=== PATIENT | female | born 1950 | race Caucasian/White ===

== ENCOUNTER → 2017-09-09 | Day surgery (SDC) | payer MEDICARE, OTHER ==
[~2017-09-09] MED LIST: CALCIUM ACETAT667 M1 PO; CELEBREX100 MG PO; HYALURONIDASE 16 MG/2 ML SYR ONE; HYDROCODON-ACE1 EA12 PO; IOPAMIDOL 200 MG/ML 20 ML VIAL IT ONE; LIDOCAINE HCL 1% 30ML-PF VIAL ONE; LIDOCAINE HCL 2% LOCAL INJ 5 ML SDV VIAL INJ ONE; METHOCARBAMOL750 MG PO; MULTI-VITAMIN1 EACH PO; PROPOFOL IV EMULSION 10 MG/ML 20 ML VIAL ONE; TYLENOL EXTRA500 MG PO; ULTRAM 50MG50 MG PO; VITAMIN D5000 UNIT PO; XANAX0.5 MG PO; tylenol pm PO
== END | disposition home or self-care (01) ==
LOC: OR 06:10
PROVIDERS: ATTEND Physical Medicine & Rehabilitation Pain Medicine
DX: M17.12 Unilateral primary osteoarthritis, left knee (principal); Z96.651 Presence of right artificial knee joint; M46.1 Sacroiliitis, not elsewhere classified; G57.02 Lesion of sciatic nerve, left lower limb; G57.01 Lesion of sciatic nerve, right lower limb; M47.812 Spondylosis without myelopathy or radiculopathy, cervical region; M54.16 Radiculopathy, lumbar region; I10 Essential (primary) hypertension; J45.909 Unspecified asthma, uncomplicated
CPT/HCPCS: 20610; 76000; J2001 ×2; Q9966

== ENCOUNTER → 2018-07-14 | Day surgery (SDC) | payer MEDICARE, OTHER ==
[2018-07-13 10:10] LABS: BASOPHILS % 0.6 % (0.0-1.0); EOSINOPHILS # (AUTO) 0.1 (0.0-0.4); EOSINOPHILS % 1.4 % (0.0-6.0); HEMATOCRIT 38.3 % (34.2-44.1); HEMOGLOBIN 11.6 g/dL (12.0-16.0); LYMPHOCYTES # (AUTO) 1.8 (1.0-3.2); LYMPHOCYTES % 35.3 % (18.0-39.1); MEAN CORPUSCULAR HEMOGLOBIN 25.3 pg (28-32); MEAN CORPUSCULAR HGB CONC 30.3 g/dL (31-35); MEAN CORPUSCULAR VOLUME 83.6 fL (81-99); MONOCYTES # (AUTO) 0.6 (0.2-0.8); MONOCYTES % 10.9 % (4.4-11.3); NEUTROPHILS # (AUTO) 2.7 (2.1-6.9); NEUTROPHILS % 51.4 % (38.7-80.0); PLATELET COUNT 167 x10e3/uL (140-360); RED BLOOD COUNT 4.58 x10e6/uL (3.6-5.1); RED CELL DISTRIBUTION WIDTH 14.1 % (11.7-14.4)
[~2018-07-14] MED LIST changes: +FENTANYL CITRATE/PF 100MCG/2 ML INJ ONE; +HYALURONIDASE 16 MG/2 ML SYR IU ONE; -HYALURONIDASE 16 MG/2 ML SYR ONE; +METAXALONE800 MG PO; +MIDAZOLAM HCL 2 MG/2 ML VIAL ONE; +NASONEX17 GM; +VIT B12 INJ
--- OUTSIDE RECORDS SUMMARY | 2018-07-14 05:09 | XMS REPORT | Continuity of Care Document ---
Author Author [facility] Interface Address Unknown Phone Unavailable Problems Problem Status Onset Date Classification Date Reported Comments Source Encounter for screening mammogram for malignant neoplasm of breast 12/22/2017 03/23/2018 KEANU Hamm Z12.39 - ENCOUNTER FOR OTH SCREENING FO Active 07/04/2015 KEANU Hamm MORBID OBESITY Active 06/06/2013 [facility] Asthma Resolved Problem 04/07/2018 KEANU Hamm,[facility], [facility] [place] Depression Resolved Problem 04/07/2018 KEANU Hamm,[facility], [facility] [place] HLD - Hyperlipidemia Resolved Problem 04/07/2018 KEANU Hamm,[facility], [facility] [place] HTN - Hypertension Resolved Problem 04/07/2018 KEANU Hamm,[facility], [facility] [place] Morbid obesity Resolved Problem 04/07/2018 KEANU Hamm,[facility], [facility] [place] Osteoarthritis Resolved Problem 04/07/2018 KEANU Hamm,[facility], [facility] [place] Reflux Resolved Problem 04/07/2018 KEANU Hamm,[facility], [facility] [place] Encounter for screening for osteoporosis 03/23/2018 [place] Unspecified menopausal and perimenopausal disorder 03/23/2018 [facility] [place] MORBID OBESITY Active [facility] Medications Medication Details Route Status Patient Instructions Ordering Provider Order Date Source acetaminophen-hydrocodone 325 mg-7.5 mg/15 mL oral solution 15 ml, PO, Q4H, PRN, not to exceed 6 doses/day, 500 mL, as needed for pain, Substitution Allowed, Maintenance, SOLNnot to exceed 6 doses/day Active Sagun 07/26/2013 [facility] potassium phosphate + Sodium Chloride 0.9% IV 250 mL 30 mmol, 10 mL, Route: IVPB, ONCE, Dosing Weight 127.273, kg, Start date: 07/26/13 7:42:00, Stop date: 07/26/13 7:42:00(Same as: K Phosphate.) 1 mMol phoshate has 1.47 mEq potassium Infuse over 4 hours Inactive Brodie 07/26/2013 [facility] LR IV 1,000 mL 1,000 mL, Rate: 75 ml/hr, Infuse over: 13.3 hr, Route: IV, Dosing Weight 127.273 kg, Total Volume: 1,000, Start date: 07/25/13 13:42:00, Duration: 30 day, Stop date: 08/24/13 13:41:00 No Longer Active Dolphin 07/25/2013 [facility] acetaminophen-hydrocodone 300 mg-10 mg/15 mL oral liquid 15 mL, Route: PO, Drug Form: SOLN, Dosing Weight 127.273, kg, Q4H, PRN Pain, Start date: 07/25/13 13:42:00, Duration: 30 day, Stop date: 08/24/13 13:41:00Do not exceed 4gm/day of acetaminophen. (Same as: Zolvit) No Longer Active [place] 07/25/2013 [facility] Dextrose 5% with 0.45% NaCl IV 1,000 mL 1,000 mL, Rate: 75 ml/hr, Infuse over: 13.3 hr, Route: IV, Dosing Weight 127.273 kg, Total Volume: 1,000, Start date: 07/25/13 13:04:00, Duration: 30 day, Stop date: 08/24/13 13:03:00 Inactive [place]olphin 07/25/2013 [facility] ketorolac 30 mg, 1 mL, Route: IV, Drug form: INJ, Q6H, Dosing Weight 127.273, kg, Priority: STAT, Start date: 07/25/13 10:15:00, Duration: 1 day, Stop date: 07/26/13 10:00:00(Same as:Toradol) IV bolus must be given >15 seconds. Give IM administration slowly and deeply into the muscle. Not for use > 4 days No Longer Active Dolphin 07/25/2013 [facility] Bystolic 5 mg, 1 tab, Route: PO, Drug form: TAB, Daily, Start date: 07/25/13 9:00:00, Duration: 30 day, Stop date: 08/23/13 9:00:00(same as: Bystolic) No Longer Active [facility] 07/25/2013 [facility] Celexa 40 mg, 2 tab, Route: PO, Drug form: TAB, Daily, Start date: 07/25/13 9:00:00, Duration: 30 day, Stop date: 08/23/13 9:00:00(Same As: Celexa) No Longer Active [facility] 07/25/2013 [facility] heparin 5,000 unit, 1 mL, Route: SUB-Q, Drug form: INJ, Q8H, Start date: 07/25/13 8:00:00, Duration: 30 day, Stop date: 08/24/13 0:00:00porcine heparin No Longer Active [facility] 07/25/2013 [facility] Levaquin 750 mg, 150 mL, Route: IV, Drug form: SOLN, ONCE, Dosing Weight 127.273, kg, Start date: 07/25/13 7:04:00, Stop date: 07/25/13 7:04:00(Same as:Levaquin) Inactive Chivo 07/25/2013 [facility] D5W 1/2NS + KCL 20mEq/L 1000ml (Premix) 1,000 mL 1,000 mL, Rate: 75 ml/hr, Infuse over: 13.3 hr, Route: IV, Dosing Weight 127.273 kg, Total Volume: 1,000, Start date: 07/25/13 6:42:00, Duration: 30 day, Stop date: 08/24/13 6:41:00PREMIX IV - Do Not Alter Inactive Chivo 07/25/2013 [facility] albuterol 0.083% inhalation solution 2.49 mg, 3 mL, Route: NEB, Drug form: SOLN, RQ6H, Start date: 07/25/13 2:00:00, Duration: 30 day, Stop date: 08/23/13 20:00:00SEE RT DOCUMENTATION (Same as: Heriberto) No Longer Active [facility] 07/25/2013 [facility] naloxone 0.4 mg, 1 mL, Route: IV, Drug form: INJ, PRN, PRN Narcotic Reversal, Start date: 07/25/13 0:34:00, Duration: 30 day, Stop date: 08/23/13 23:33:00(Same as: Narcan) No Longer Active [facility] 07/25/2013 [facility] hydromorphone 15 mg IV, Start date: 07/25/13 0:34:00, Duration: 30, 30 ml, 127.273 No Longer Active Sagun 07/25/2013 [facility] Zofran 4 mg, 2 mL, Route: IVP, Drug form: INJ, Q6H, PRN Nausea & Vomiting, Start date: 07/25/13 0:30:00, Duration: 30 day, Stop date: 08/24/13 0:29:00(Same as: Zofran) No Longer Active [facility] 07/25/2013 [facility] Phenergan 12.5 mg, 0.5 mL, Route: IVPB, Drug form: INJ, Q4H, PRN Nausea & Vomiting, Start date: 07/25/13 0:28:00, Stop date: 08/24/13 0:27:00Do not give IV push. (Same as: Phenergan) No Longer Active [facility] 07/25/2013 [facility] Benadryl 25 mg, 0.5 mL, Route: IV, Drug form: INJ, Bedtime, PRN Insomnia, Start date: 07/25/13 0:26:00, Duration: 30 day, Stop date: 08/24/13 0:25:00(Same as: Benadryl) No Longer Active [facility] 07/25/2013 [facility] Lactated Ringers Injection IV 1,000 mL 1,000 mL, Rate: 100 ml/hr, Infuse over: 10 hr, Route: IV, Dosing Weight 127.273 kg, Total Volume: 1,000, Start date: 07/25/13 0:23:00, Duration: 30 day, Stop date: 08/24/13 0:22:00 Inactive Chivo 07/25/2013 [facility] promethazine 6.25 mg, Route: IM, ONCE, Dosing Weight 127.273, kg, Start date: 07/24/13 19:21:00, Stop date: 07/24/13 19:21:00 Inactive Rey 07/25/2013 [facility] labetalol 5 mg, Route: IVP, Q5Min, Dosing Weight 127.273, kg, PRN Elevated BP, Start date: 07/24/13 18:02:00, Duration: 5 doses or times, Stop date: Limited # of times Inactive Naylor 07/24/2013 [facility] fentanyl 25 microgram, Route: IVP, Q5Min, Dosing Weight 127.273, kg, PRN Pain Score 4-6, Start date: 07/24/13 18:02:00, Duration: 4 doses or times, Stop date: Limited # of times Inactive Naylor 07/24/2013 [facility] flumazenil 0.2 mg, Route: IVP, PRN, Dosing Weight 127.273, kg, PRN Benzodiazepine Reversal, Initial dose, Start date: 07/24/13 18:02:00, Duration: 30 day, Stop date: 08/23/13 17:01:00 Inactive Naylor 07/24/2013 [facility] naloxone 0.04 mg, Route: IVP, Q2MIN, Dosing Weight 127.273, kg, PRN Narcotic Reversal, Start date: 07/24/13 18:02:00, Duration: 8 doses or times, Stop date: Limited # of times Inactive Naylor 07/24/2013 [facility] ondansetron 4 mg, Route: IVP, ONCE, Dosing Weight 127.273, kg, PRN Nausea & Vomiting, Start date: 07/24/13 18:02:00 Inactive Aric 07/24/2013 [facility] Levaquin 500 mg, Route: IVPB, PRE OP, Dosing Weight 127.273, kg, Start date: 07/24/13 13:59:00 Inactive Wilbur 07/24/2013 [facility] bupivacaine liposome 20 mL, Route: InFILtration(local), Drug Form: INJ, ONCE, Start date: 07/24/13 12:46:00, Stop date: 07/24/13 12:46:00(Same as: Exparel) NOT FOR IV use Postoperative analgesia: Infiltration (local): Dose is based on surgical site and volume required to cover the area (in general, the maximum total dose is 266 mg). Bunionectomy: 7 mL into the tissues surrounding the osteotomy and 1 mL into the subcutaneous tissue of the surgical site (total dose=8 mL [106 mg]) Hemorrhoidectomy: 30 mL (20 mL vial diluted with 10 mL NS) divided and administered as 6 injections of 5 mL each (total dose=30 mL [266 mg]) No Longer Active [place]olphin 07/24/2013 [facility] Ofirmev 1,000 mg, 100 mL, Route: IV, Drug form: INJ, PRE OP, Start date: 07/24/13 6:00:00, Duration: 1 doses or times, Stop date: 07/24/13 22:00:00Infuse over 15 minutes Do not exceed 4gm/day of acetaminophen No Longer Active [place] 07/24/2013 [facility] heparin 5,000 unit, 1 mL, Route: SUB-Q, Drug form: INJ, PRE OP, Start date: 07/24/13 6:00:00, Duration: 1 doses or times, Stop date: 07/24/13 22:00:00porcine heparin Inactive [place] 07/24/2013 [facility] scopolamine 1 patch, Route: TOP, Drug form: ERFILM, PRE OP, Start date: 07/24/13 6:00:00, Duration: 1 doses or times, Stop date: 07/24/13 22:00:00Change patch every 72 hours (Same as: Transderm-Scop) Inactive [place] 07/24/2013 [facility] Ofirmev 1,000 mg, 100 mL, Route: IV, Drug form: INJ, PRE OP, Start date: 07/23/13 4:00:00, Duration: 1 doses or times, Stop date: 07/23/13 22:00:00Infuse over 15 minutes Do not exceed 4gm/day of acetaminophen Inactive [place]olphin 07/23/2013 [facility] scopolamine 1 patch, Route: TOP, Drug form: ERFILM, PRE OP, Start date: 07/23/13 4:00:00, Duration: 1 doses or times, Stop date: 07/23/13 22:00:00Change patch every 72 hours (Same as: Transderm-Scop) Inactive [place] 07/23/2013 [facility] heparin 5,000 unit, 1 mL, Route: SUB-Q, Drug form: INJ, PRE OP, Start date: 07/23/13 4:00:00, Duration: 1 doses or times, Stop date: 07/23/13 22:00:00porcine heparin Inactive Wilbur 07/23/2013 [facility] Vitamin B-12 1000 mcg sublingual tablet Substitution Allowed No Longer Active 07/12/2013 [facility] vitamin A 8000 units oral capsule Substitution Allowed No Longer Active 07/12/2013 [facility] Multiple Vitamins oral tablet 1 tab, PO, Daily, 30 tab, Substitution Allowed, Maintenance, TAB No Longer Active 07/12/2013 [facility] Aleve Caplet 220 mg oral tablet Substitution Allowed No Longer Active 07/12/2013 [facility] Prilosec 10 mg oral delayed release capsule 10 mg, 1 cap, PO, Daily, 30 cap, Substitution Allowed No Longer Active 07/12/2013 [facility] FiberCon 625 mg oral tablet Substitution Allowed No Longer Active 07/12/2013 [facility] Ventolin HFA 90 mcg/inh inhalation aerosol with adapter 2 puff, INHALATION, QID, 17 gm, Substitution Allowed, Maintenance, AERO Active 07/12/2013 [facility] Symbicort 80/4.5 inhalation aerosol with adapter 2 puff, INHALATION, BID, 10 gm, Substitution Allowed, Maintenance, AERO Active 07/12/2013 [facility] Nasonex 50 mcg/inh nasal spray 2 spray, NASAL, Daily, PRN for allergy symptoms, 17 gm, Substitute Allowed, SPRY Active 07/12/2013 [facility] Celebrex 200 mg oral capsule Substitution Allowed No Longer Active 07/12/2013 [facility] Vitamin D 50,000 intl units oral capsule 50,000 IntlUnit, 1 cap, PO, 5X Day, 24 cap, Substitution Allowed, CAP No Longer Active 07/12/2013 [facility] citalopram 40 mg oral tablet 40 mg, 1 tab, PO, Daily, 30 tab, Substitution Allowed, TAB Active 07/12/2013 [facility] Vytorin 10 mg-20 mg oral tablet 1 tab, PO, Daily, 30 tab, Substitution Allowed, Maintenance, TAB Active 07/12/2013 [facility] Bystolic 5 mg oral tablet 5 mg, 1 tab, PO, Daily, 30 tab, Substitution Allowed, TAB Active 07/12/2013 [facility] fosinopril 10 mg oral tablet 10 mg, 1 tab, PO, Daily, 30 tab, Substitution Allowed, TAB Active 07/12/2013 [facility] Allergies, Adverse Reactions, Alerts Substance Category Reaction Severity Reaction type Status Date Reported Comments Source penicillins Assertion Drug allergy Active [facility] [place] Immunizations Immunization Date Given Site Status Last Updated Comments Source Results Order Name Results Value Reference Range Date Interpretation Comments Source Chest 2 views DX Chest 2 views DX EXAM: XR CHEST 2 VIEWS DATE: 04/04/2018 8:47 AM CDT INDICATION: - asthma, pre op COMPARISON: August 08, 2008 TECHNIQUE: PA and lateral chest radiographs FINDINGS: BONES: [No significant osseous abnormalities HEART: [Normal in size and configuration] Mediastinum and Justice: No soft tissue masses in the mediastinum or justice. There are rim-like calcifications in the umaña of the aorta at the arch. The descending thoracic aorta is mildly tortuous. Lungs: There is ill-defined increased density in the right infrahilar region extending to the medial portion of the right hemidiaphragm. The appearance is very similar to that comparison study which was almost 9 years ago. The lungs are otherwise clear. There are no pleural effusions. IMPRESSION: 1. Airspace density in the right lung base medially is present. This appears grossly unchanged from a comparison study from 9 years earlier. This could represent the same density or represent a new area of airspace disease such as atelectasis or pneumonia. Please correlate for any active process. Consider repeat plain exam in 2-3 weeks. If the process is persistent on follow-up radiographs, a CT scan is suggested. 04/04/2018 - - Read by: Jadon Siddiqui MD Dictated Date/time: 04/04/18 09:59 Electronically Signed by: Jadon Siddiqui MD 04/04/18 10:03 FINAL REPORT [facility] Bone Density DXA [employer] MA Bone Density DXA [employer] MA BONE DENSITY ASSESSMENT: 12/15/2017 CLINICAL DATA: Post menopausal. N95.9 Unspecified Menopausal And Perimenopausal Disorder/N95.9 Unspecified Menopausal And Perimenopausal Disorder RISK FACTORS: race. FINDINGS: Bone density evaluation was performed 12/15/2017 on the right femur neck using a Hologic unit. The BMD average for the exam is 0.666 g/cm2. The T-score is -1.70 and the Z-score is 0.10. This matches the World Health Organization's criteria for osteopenia and places the patient at a medium risk for fracture. An additional bone density evaluation was performed 12/15/2017 on the left femur neck using a Hologic unit. The BMD average for the exam is 0.606 g/cm2. The T- score is -2.20 and the Z-score is -0.40. This matches the World Health Organization's criteria for osteopenia and places the patient at a medium risk for fracture. An additional bone density evaluation was performed 12/15/2017 on the right hip using a Hologic unit. The BMD average for the exam is 0.745 g/cm2. The T-score is -1.60 and the Z-score is -0.10. This matches the World Health Organization's criteria for osteopenia and places the patient at a medium risk for fracture. An additional bone density evaluation was performed 12/15/2017 on the left hip using a Hologic unit. The BMD average for the exam is 0.685 g/cm2. The T-score is -2.10 and the Z-score is -0.60. This matches the World Health Organization's criteria for osteopenia and places the patient at a medium risk for fracture. An additional bone density evaluation was performed 12/15/2017 on the AP L3-L4 region of spine using a Hologic unit. The BMD average for the exam is 1.155 g/cm2. The T-score is 0.50 and the Z-score is 2.70. This matches the World Health Organization's criteria for normal bone density and places the patient within normal limits of fracture risk. FRAX 10 year probability of major osteoporotic fracture is 10% and hip fracture is 1.8%. IMPRESSION: OSTEOPENIA Patient is at medium risk for fracture. This exam was interpreted at [id number] at [facility]. Maksim Lopez M.D., jp/nathaniel:12/15/2017 13:29:16 Corner Brace [employer] Machine Operator(s): Tanya MINOR(Yasir)(Nicole), [facility] 12/15/2017 - - Read by: Maksim Lopez MD Dictated Date/time: 12/15/17 13:29 Electronically Signed by: Maksim Lopez MD 12/15/17 13:29 FINAL REPORT MH [facility] [place] Breast Mammo Scrn JASSON incl CAD MA Breast Mammo Scrn JASSON incl CAD MA BILATERAL DIGITAL SCREENING MAMMOGRAM WITH CAD: 12/15/2017 CLINICAL: Z12.31 Encounter For Screening Mammogram For Malignant Neoplasm Of Breast/Z12.31 Encounter For Screening Mammogram For Malignant Neoplasm Of Breast. Current study was evaluated with a Computer Aided Detection (CAD) system. COMPARISON:Comparison is made to exams dated: 11/27/2016 mammogram, 07/16/2015 mammogram - [facility], and 05/02/2014 mammogram - [facility]. TECHNIQUE: Mammographic views were obtained using digital acquisition. Current study was also evaluated with a Computer Aided Detection (CAD) system. FINDINGS: There are scattered fibroglandular densities in both breasts. No significant masses, calcifications, or other findings are seen in either breast. There has been no significant interval change. IMPRESSION: NEGATIVE RECOMMENDATION:There is no mammographic evidence of malignancy. A 1 year screening mammogram is recommended.(12/16/2018) This exam was interpreted at [id number] at [facility]. Professional services are provided by [facility]. Inga Munoz M.D. th/penrad:12/15/2017 18:19:59 Corner Brace Block Machine Operator(s): RT Quinten(R)(M), [facility] letter sent: BI-RADS 1/2 Mammogram BI-RADS: 1 Negative 12/15/2017 - - Read by: Inga Munoz MD Dictated Date/time: 12/15/17 18:19 Electronically Signed by: Inga Munoz MD 12/15/17 18:19 FINAL REPORT [place] [place] [facility] JASS[place] incl CAD MA Breast Mammo Scrn JASSON incl CAD MA - BREAST MAMMO SCRN JASSON INCL CAD MA BILATERAL DIGITAL SCREENING MAMMOGRAM WITH CAD: 11/27/2016 CLINICAL: Routine. Current study was evaluated with a Computer Aided Detection (CAD) system. Comparison is made to exams dated: 07/16/2015 mammogram - [facility], 05/02/2014 mammogram and 02/27/2011 mammogram - [facility]. There are scattered fibroglandular densities in both breasts. No significant masses, calcifications, or other findings are seen in either breast. There has been no significant interval change. IMPRESSION: NEGATIVE There is no mammographic evidence of malignancy. A 1 year screening mammogram is recommended. Professional services are provided by the [facility] of Diagnostic Imaging. Giulia Barba M.D. ak/penrad:11/30/2016 09:01:34 Corner Brace Block Machine Operator: Rosy Mckeon RT(R)(M), [facility] This exam was dictated and interpreted by [id number] for Nazario Bhatti. letter sent: Normal exam Mammogram BI-RADS: 1 Negative 11/27/2016 - - Read by: Giulia Barba MD Dictated Date/time: 11/30/16 09:01 Electronically Signed by: Giulia Barba MD 11/30/16 09:01 FINAL REPORT KEANU Hamm Digital Mammo Screening Jasson MA Digital Mammo Screening Jasson MA - DIGITAL MAMMO SCREENING JASSON MA BILATERAL DIGITAL SCREENING MAMMOGRAM WITH CAD: 07/16/2015 CLINICAL: Routine. Current study was evaluated with a Computer Aided Detection (CAD) system. Comparison is made to exams dated: 05/02/2014 mammogram and 02/27/2011 mammogram - [facility]. There are scattered fibroglandular densities in both breasts. No significant masses, calcifications, or other findings are seen in either breast. There has been no significant interval change. IMPRESSION: NEGATIVE There is no mammographic evidence of malignancy. A 1 year screening mammogram is recommended. Rei Arshad M.D jv/penrad:07/22/2015 08:26:56 Corner Brace Block Machine Operator: Rosy Mckeon, [facility] This exam was dictated and interpreted by [id number] for VARUN Hamm. letter sent: Normal exam Mammogram BI-RADS: 1 Negative 07/16/2015 - - Read by: Rei Arshad MD Dictated Date/time: 07/22/15 08:26 Electronically Signed by: Rei Arshad 07/22/15 08:26 FINAL REPORT KEANU Hamm BEDSIDE GLUCOSE TESTING Gluc POC Comment 1 Notify RN/MD 07/26/2013 [facility] BEDSIDE GLUCOSE TESTING Glucose POC 84 mg/dL 70 - 99 07/26/2013 Normal 1Interpretive Data: Upper Reportable Limit: 200 mg/dL. [facility] BEDSIDE GLUCOSE TESTING Glucose POC 68 mg/dL 70 - 99 07/26/2013 LOW 2Interpretive Data: Upper Reportable Limit: 200 mg/dL. [facility] BEDSIDE GLUCOSE TESTING Gluc POC Comment 1 Notify MARJAN/ 07/26/2013 [facility] BEDSIDE GLUCOSE TESTING Glucose POC 85 mg/dL 70 - 99 07/26/2013 Normal 3Interpretive Data: Upper Reportable Limit: 200 mg/dL. [facility] BEDSIDE GLUCOSE TESTING Gluc POC Comment 1 Notify KENZIE 07/26/2013 [facility] CHEMISTRY Phosphorus 1.8 mg/dL 2.5 - 4.5 07/26/2013 LOW [facility] CHEMISTRY Magnesium Lvl 1.9 mg/dL 1.8 - 2.4 07/26/2013 Normal [facility] CHEMISTRY eGFR 78 mL/min/1.73m2 07/26/2013 4Result Comment: The eGFR is calculated using the CKD-EPI formula. In most young, healthy individuals the eGFR will be >90 mL/min/1.73m2. The eGFR declines with age. An eGFR of 60-89 may be normal in some populations, particularly the elderly, for whom the CKD-EPI formula has not been extensively validated. Use of the eGFR is not recommended in the following populations: Individuals with unstable creatinine concentrations, including patients and those with serious co-morbid conditions. Patients with extremes in muscle mass or diet. The data above are obtained from the National Kidney Disease Education Program (NKDEP) which additionally recommends that when the eGFR is used in patients with extremes of body mass index for purposes of drug dosing, the eGFR should be multiplied by the estimated BMI. [facility] CHEMISTRY Potassium Lvl 3.6 meq/L 3.5 - 5.1 07/26/2013 Normal [facility] CHEMISTRY Chloride Lvl 105 meq/L 95 - 109 07/26/2013 Normal [facility] CHEMISTRY CO2 28 meq/L 24 - 32 07/26/2013 Normal [facility] CHEMISTRY Calcium Lvl 8.3 mg/dL 8.5 - 10.5 07/26/2013 LOW [facility] CHEMISTRY BUN 11 mg/dL 7 - 22 07/26/2013 Normal [facility] CHEMISTRY Creatinine Lvl 0.8 mg/dL 0.5 - 1.4 07/26/2013 Normal [facility] CHEMISTRY Sodium Lvl 145 meq/L 135 - 145 07/26/2013 Normal [facility] CHEMISTRY Glucose Lvl 89 mg/dL 70 - 99 07/26/2013 Normal 7Interpretive Data: Adult reference range values reflect the clinical guidelines of the [place] [employer]. [facility] CHEMISTRY AGAP 15.6 meq/L 10.0 - 20.0 07/26/2013 Normal [facility] HEMATOLOGY WBC X 10x3 7.5 K/CMM 3.7 - 10.4 07/26/2013 Normal [facility] HEMATOLOGY RBC X 10x6 4.32 M/CMM 4.20 - 5.40 07/26/2013 Normal [facility] HEMATOLOGY MCV 84.9 fL 81.0 - 99.0 07/26/2013 Normal [facility] HEMATOLOGY Hct 36.6 % 36.0 - 48.0 07/26/2013 Normal [facility] HEMATOLOGY Hgb 11.6 g/dL 12.0 - 16.0 07/26/2013 LOW [facility] HEMATOLOGY MCHC 31.8 g/dL 32.0 - 36.0 07/26/2013 LOW [facility] HEMATOLOGY MCH 27.0 pg 27.0 - 31.0 07/26/2013 Normal [facility] HEMATOLOGY MPV 9.1 fL 7.4 - 10.4 07/26/2013 Normal [facility] HEMATOLOGY Platelet 101 K/CMM 133 - 450 07/26/2013 [facility] HEMATOLOGY RDW 15.5 % 11.5 - 14.5 07/26/2013 HI [facility] HEMATOLOGY Lymphocytes # 1.9 K/CMM 1.0 - 5.5 07/26/2013 Normal [facility] HEMATOLOGY Segs 63.9 % 45.0 - 75.0 07/26/2013 Normal [facility] HEMATOLOGY Plt Morph Normal (07/26/2013 04:53:00) 07/26/2013 Normal [facility] HEMATOLOGY RBC Morph Normal (07/26/2013 04:53:00) 07/26/2013 Normal [facility] HEMATOLOGY Segs-Bands # 4.8 K/CMM 1.5 - 8.1 07/26/2013 Normal [facility] HEMATOLOGY Basophils 0.3 % 0.0 - 1.0 07/26/2013 Normal [facility] HEMATOLOGY Eosinophils 0.3 % 0.0 - 4.0 07/26/2013 Normal [facility] HEMATOLOGY Monocytes 10.8 % 2.0 - 12.0 07/26/2013 Normal [facility] HEMATOLOGY Lymphocytes 24.7 % 20.0 - 40.0 07/26/2013 Normal [facility] HEMATOLOGY Monocytes # 0.8 K/CMM 0.0 - 0.8 07/26/2013 Normal [facility] Stomach UGI (water soluble contrast) Stomach UGI (water soluble contrast) EXAM: UPPER GI WATER SOLUBLE CONTRAST DATE: Jul 25, 2013 11:00:25 AM . INDICATION: Abdominal pain. ADDITIONAL INFORMATION: 63-year-old female with morbid obesity status post removal of vertical banded gastroplasty and laparoscopic revision of Kaia-en-Y gastric bypass. COMPARISON: None. TECHNIQUE Upper GI examination was performed by giving the patient water soluble contrast orally. Frontal advertising job titles and multiple spot post contrast radiographs were obtained. FLUOROSCOPY TIME: Not applicable. FINDINGS: Discovery graft demonstrates multiple alejandro and sutures projecting over the left upper quadrant. Multiple gas-filled, nondilated small bowel loops are noted. Small amount of gas and fecal material is scattered dot the visualized portion of the colon. The distal colon is decompressed. Surgical clips in the right upper quadrant are compatible with prior cholecystectomy. Lung bases are clear. Cardiac silhouette is normal in size. Mild multilevel degenerative changes are of the thoracic and lumbar spine noted. Contrast passes through the gastroesophageal junction into the stomach remnant and immediately passes into proximal jejunal loops past the level of the anastomosis. No definite evidence of contrast leakage is noted, however evaluation is limited with incomplete luminal distention. A small amount of residual contrast is present within the distal third of the esophagus at the end of the examination. Evaluation for filling defects or strictures is limited in this study. IMPRESSION: 1. The gastrojejunal anastomosis is intact with passive contrast into the proximal jejunum without evidence of contrast leakage. Evaluation is limited without complete luminal distention. 2. Residual contrast in the distal third of the esophagus at the end of the examination may be due to narrowing related to post-operative wall edema or gastroesophageal reflux. 07/25/2013 - - This report was dictated by a [facility]/Fellow. I have personally reviewed the images as well as the Resident's interpretation and agree with the findings. Read by: Mag Tsai Resident: Mag Tsai Dictated Date/time: 07/25/13 14:14 Electronically Signed by: Emigdio Shahid MD 07/25/13 16:57 FINAL REPORT [facility] CHEMISTRY Phosphorus 3.2 mg/dL 2.5 - 4.5 07/25/2013 Normal [facility] CHEMISTRY Magnesium Lvl 1.8 mg/dL 1.8 - 2.4 07/25/2013 Normal [facility] CHEMISTRY AGAP 14.5 meq/L 10.0 - 20.0 07/25/2013 Normal [facility] CHEMISTRY eGFR 78 mL/min/1.73m2 07/25/2013 5Result Comment: The eGFR is calculated using the CKD-EPI formula. In most young, healthy individuals the eGFR will be >90 mL/min/1.73m2. The eGFR declines with age. An eGFR of 60-89 may be normal in some populations, particularly the elderly, for whom the CKD-EPI formula has not been extensively validated. Use of the eGFR is not recommended in the following populations: Individuals with unstable creatinine concentrations, including patients and those with serious co-morbid conditions. Patients with extremes in muscle mass or diet. The data above are obtained from the National Kidney Disease Education Program (NKDEP) which additionally recommends that when the eGFR is used in patients with extremes of body mass index for purposes of drug dosing, the eGFR should be multiplied by the estimated BMI. [facility] CHEMISTRY Chloride Lvl 103 meq/L 95 - 109 07/25/2013 Normal [facility] CHEMISTRY CO2 25 meq/L 24 - 32 07/25/2013 Normal [facility] CHEMISTRY Calcium Lvl 8.1 mg/dL 8.5 - 10.5 07/25/2013 LOW [facility] CHEMISTRY Glucose Lvl 163 mg/dL 70 - 99 07/25/2013 HI 8Interpretive Data: Adult reference range values reflect the clinical guidelines of the [place] [employer]. [facility] CHEMISTRY BUN 16 mg/dL 7 - 22 07/25/2013 Normal [facility] CHEMISTRY Creatinine Lvl 0.8 mg/dL 0.5 - 1.4 07/25/2013 Normal [facility] CHEMISTRY Sodium Lvl 138 meq/L 135 - 145 07/25/2013 Normal [facility] CHEMISTRY Potassium Lvl 4.5 meq/L 3.5 - 5.1 07/25/2013 Normal [facility] HEMATOLOGY Monocytes # 0.4 K/CMM 0.0 - 0.8 07/25/2013 Normal [facility] HEMATOLOGY Segs-Bands # 8.6 K/CMM 1.5 - 8.1 07/25/2013 [facility] HEMATOLOGY Basophils 0.1 % 0.0 - 1.0 07/25/2013 Normal [facility] HEMATOLOGY Eosinophils 0.1 % 0.0 - 4.0 07/25/2013 Normal [facility] HEMATOLOGY Lymphocytes # 0.6 K/CMM 1.0 - 5.5 07/25/2013 [facility] HEMATOLOGY Monocytes 3.8 % 2.0 - 12.0 07/25/2013 [facility] HEMATOLOGY Lymphocytes 6.2 % 20.0 - 40.0 07/25/2013 [facility] HEMATOLOGY Segs 89.8 % 45.0 - 75.0 07/25/2013 [facility] HEMATOLOGY MCHC 31.9 g/dL 32.0 - 36.0 07/25/2013 [facility] HEMATOLOGY MPV 9.2 fL 7.4 - 10.4 07/25/2013 Normal [facility] HEMATOLOGY MCH 27.1 pg 27.0 - 31.0 07/25/2013 [facility] HEMATOLOGY MCV 84.9 fL 81.0 - 99.0 07/25/2013 Normal [facility] HEMATOLOGY RDW 15.3 % 11.5 - 14.5 07/25/2013 [facility] HEMATOLOGY Platelet 123 K/CMM 133 - 450 07/25/2013 [facility] HEMATOLOGY Hgb 13.0 g/dL 12.0 - 16.0 07/25/2013 Normal [facility] HEMATOLOGY RBC X 10x6 4.81 M/CMM 4.20 - 5.40 07/25/2013 [facility] HEMATOLOGY Hct 40.9 % 36.0 - 48.0 07/25/2013 Normal [facility] HEMATOLOGY WBC X 10x3 9.6 K/CMM 3.7 - 10.4 07/25/2013 Normal [facility] BLOOD BANK RESULTS ABO/Rh A POS 07/24/2013 [facility] BLOOD BANK RESULTS Antibody Scrn Negative (07/24/2013 12:50:00) 07/24/2013 Normal [facility] CHEMISTRY A/G Ratio 1.3 0.7 - 1.6 07/12/2013 Normal [facility] CHEMISTRY AGAP 14.3 meq/L 10.0 - 20.0 07/12/2013 Normal [facility] CHEMISTRY Globulin 3.1 g/dL 2.0 - 4.0 07/12/2013 Normal [facility] CHEMISTRY B/C Ratio 22 6 - 25 07/12/2013 Normal [facility] CHEMISTRY eGFR 78 mL/min/1.73m2 07/12/2013 6Result Comment: The eGFR is calculated using the CKD-EPI formula. In most young, healthy individuals the eGFR will be >90 mL/min/1.73m2. The eGFR declines with age. An eGFR of 60-89 may be normal in some populations, particularly the elderly, for whom the CKD-EPI formula has not been extensively validated. Use of the eGFR is not recommended in the following populations: Individuals with unstable creatinine concentrations, including patients and those with serious co-morbid conditions. Patients with extremes in muscle mass or diet. The data above are obtained from the National Kidney Disease Education Program (NKDEP) which additionally recommends that when the eGFR is used in patients with extremes of body mass index for purposes of drug dosing, the eGFR should be multiplied by the estimated BMI. [facility] CHEMISTRY Calcium Lvl 9.1 mg/dL 8.5 - 10.5 07/12/2013 Normal [facility] CHEMISTRY CO2 28 meq/L 24 - 32 07/12/2013 Normal [facility] CHEMISTRY Bili Total 0.5 mg/dL 0.2 - 1.3 07/12/2013 Normal [facility] CHEMISTRY ASPARTATE TRANSAMINASE 18 unit/L 0 - 37 07/12/2013 Normal [facility] CHEMISTRY Total Protein 7.0 g/dL 6.4 - 8.4 07/12/2013 Normal [facility] CHEMISTRY Alk Phos 75 unit/L 39 - 136 07/12/2013 Normal [facility] CHEMISTRY Albumin Lvl 3.9 g/dL 3.5 - 5.0 07/12/2013 Normal [facility] CHEMISTRY ALANINE AMINOTRANSFERASE 24 unit/L 0 - 65 07/12/2013 Normal [facility] CHEMISTRY Sodium Lvl 142 meq/L 135 - 145 07/12/2013 Normal [facility] CHEMISTRY Creatinine Lvl 0.8 mg/dL 0.5 - 1.4 07/12/2013 Normal [facility] CHEMISTRY BUN 18 mg/dL 7 - 22 07/12/2013 Normal [facility] CHEMISTRY Glucose Lvl 89 mg/dL 70 - 99 07/12/2013 Normal 9Interpretive Data: Adult reference range values reflect the clinical guidelines of the [place] [employer]. [facility] CHEMISTRY Chloride Lvl 104 meq/L 95 - 109 07/12/2013 Normal [facility] CHEMISTRY Potassium Lvl 4.3 meq/L 3.5 - 5.1 07/12/2013 Normal [facility] HEMATOLOGY Eosinophils # 0.1 K/CMM 0.0 - 0.5 07/12/2013 Normal [facility] HEMATOLOGY Eosinophils 1.3 % 0.0 - 4.0 07/12/2013 Normal [facility] HEMATOLOGY Monocytes 9.3 % 2.0 - 12.0 07/12/2013 Normal [facility] HEMATOLOGY Lymphocytes 25.2 % 20.0 - 40.0 07/12/2013 Normal [facility] HEMATOLOGY Segs-Bands # 4.2 K/CMM 1.5 - 8.1 07/12/2013 Normal [facility] HEMATOLOGY Basophils 0.5 % 0.0 - 1.0 07/12/2013 Normal [facility] HEMATOLOGY Monocytes # 0.6 K/CMM 0.0 - 0.8 07/12/2013 Normal [facility] HEMATOLOGY Lymphocytes # 1.7 K/CMM 1.0 - 5.5 07/12/2013 Normal [facility] HEMATOLOGY Segs 63.7 % 45.0 - 75.0 07/12/2013 Normal [facility] HEMATOLOGY Platelet 159 K/CMM 133 - 450 07/12/2013 Normal [facility] HEMATOLOGY MPV 9.3 fL 7.4 - 10.4 07/12/2013 Normal [facility] HEMATOLOGY WBC X 10x3 6.6 K/CMM 3.7 - 10.4 07/12/2013 [facility] HEMATOLOGY RDW 15.1 % 11.5 - 14.5 07/12/2013 HI [facility] HEMATOLOGY Hct 41.2 % 36.0 - 48.0 07/12/2013 Normal [facility] HEMATOLOGY MCV 83.6 fL 81.0 - 99.0 07/12/2013 Normal [facility] HEMATOLOGY MCHC 32.7 g/dL 32.0 - 36.0 07/12/2013 Normal [facility] HEMATOLOGY Hgb 13.5 g/dL 12.0 - 16.0 07/12/2013 Normal [facility] HEMATOLOGY MCH 27.3 pg 27.0 - 31.0 07/12/2013 Normal [facility] HEMATOLOGY RBC X 10x6 4.93 M/CMM 4.20 - 5.40 07/12/2013 Normal [facility] URINALYSIS UA Mucus Few /LPF None Seen 07/12/2013 [facility] URINALYSIS UA Urobilinogen <=1.0 mg/dL 0.1 - 1.0 07/12/2013 [facility] URINALYSIS UA Leuk Est Large *ABN* (07/12/2013 14:00:00) Negative 07/12/2013 ABN [facility] URINALYSIS UA Sq Epi Many /LPF Few 07/12/2013 ABN [facility] URINALYSIS UA Nitrite Negative (07/12/2013 14:00:00) Negative 07/12/2013 Normal [facility] URINALYSIS UA Bacteria Occasional /HPF None Seen 07/12/2013 [facility] URINALYSIS UA WBC 27 /HPF 0 - 5 07/12/2013 HI [facility] URINALYSIS UA Color Yellow *NA* (07/12/2013 14:00:00) Yellow 07/12/2013 [facility] URINALYSIS UA Turbidity Slight *ABN* (07/12/2013 14:00:00) Clear 07/12/2013 ABN [facility] URINALYSIS UA Spec Grav 1.014 <=1.030 07/12/2013 Normal [facility] URINALYSIS UA pH 6.0 5.0 - 8.0 07/12/2013 Normal [facility] URINALYSIS UA Glucose Negative mg/dL Negative 07/12/2013 [facility] URINALYSIS UA Protein Negative mg/dL Negative 07/12/2013 Normal [facility] URINALYSIS UA Blood Negative (07/12/2013 14:00:00) Negative 07/12/2013 Normal [facility] URINALYSIS UA Ketones Negative mg/dL Negative 07/12/2013 [facility] URINALYSIS UA Bili Negative *NA* (07/12/2013 14:00:00) Negative 07/12/2013 [facility] Vital Signs Vital Sign Value Date Comments Source Diastolic (mm Hg) 51 07/26/2013 [facility] Systolic (mm Hg) 109 07/26/2013 [facility] Respitory Rate 19 07/26/2013 [facility] Temperature Oral (F) 98.1 F 07/26/2013 [facility] Heart Rate 69 07/26/2013 [facility] Respitory Rate 19 07/26/2013 [facility] Systolic (mm Hg) 115 07/26/2013 [facility] Diastolic (mm Hg) 53 07/26/2013 [facility] Heart Rate 70 07/26/2013 [facility] Temperature Oral (F) 97.9 F 07/26/2013 [facility] Respitory Rate 16 07/26/2013 [facility] Heart Rate 74 07/26/2013 [facility] Diastolic (mm Hg) 54 07/26/2013 [facility] Systolic (mm Hg) 116 07/26/2013 [facility] Temperature Oral (F) 97.4 F 07/26/2013 [facility] Height 157.48 cm 07/25/2013 [facility] Weight 127.273 07/25/2013 [facility] Height 160.02 cm 07/24/2013 [facility] Weight 127.273 07/24/2013 [facility] Height 157.48 cm 07/12/2013 [facility] Weight 134.545 07/12/2013 [facility] Encounters Location Location Details Encounter Type Encounter Number Reason For Visit Attending Provider ADM Date DC Date Status Source [facility] Inpatient [id number] STEVEN BORJAS 07/24/2013 07/26/2013 Active [facility] [place] [facility] [id number] Patsy Ortiz 07/16/2015 07/17/2015 [facility] [place] [facility] [place] [facility] [id number] Patsy Ortiz 11/27/2016 11/28/2016 [place] [facility] [place] [facility] [id number] Patsy Ortiz 12/15/2017 12/16/2017 [facility] [facility] [place] [facility] [id number] Isha Pro 04/04/2018 04/05/2018 [facility] [place] Procedures Procedure Code Date Perfomer Comments Source Gastric bypass revision [id number] 07/24/2013 [facility] [place] Gastric bypass revision [id number] 07/24/2013 [place] [facility] Laparoscopic Gastroenterostomy 44.38 07/24/2013 [facility] Laparoscopic Removal of Gastric Restrictive Device(s) 44.97 07/24/2013 [facility] Laparoscopic Robotic Assisted Procedure 17.42 07/24/2013 [facility] Other Endoscopy of Small Intestine 45.13 07/24/2013 [facility] Gastric bypass revision [id number] 07/24/2013 [facility] [place] section<sup>1</sup> [id number] 1980 [facility] [place] Cholecystectomy<sup>2</sup> [id number] 2002 [facility] [place] Colon<sup>3</sup> [id number] colon resection [facility] [place] Femur [id number] [facility] [place] Injection<sup>4</sup> [id number] lumbar facet injections [facility] [place] Knee replacement<sup>5</sup> [id number] 2005 [facility] [place] Nerve block<sup>6</sup> 98791055 and faucet injections 2012 [facility] [place] Operation<sup>7</sup> [id number] resection of colon [facility] [place] Operation<sup>8, 9</sup> [id number] 2006femur repair [facility] [place] Tonsillectomy [id number] [facility] [place] Vertical banded gastroplasty<sup>10</sup> [id number] 1987 [facility] [place] Operation<sup>7, 8</sup> [id number] femur [id number] [facility] [place] Operation<sup>9</sup> 376958938 resection of colon [facility] [place] section<sup>1</sup> [id number] 62755 [facility] Cholecystectomy<sup>2</sup> 55277124 37416 [facility] Colon<sup>3</sup> [id number] 3colon resection [facility] Femur [id number] [facility] Injection<sup>4</sup> 94492438 4lumbar facet injections [facility] Knee replacement<sup>5</sup> 22929509 59480 [facility] Nerve block<sup>6</sup> 77446723 6and faucet injections 2012 [facility] Operation<sup>7</sup> [id number] 7resection of colon [facility] Operation<sup>8, 9</sup> [id number] 650868uarbv repair [facility] Tonsillectomy [id number] [facility] Vertical banded gastroplasty<sup>10</sup> 34495972 370058 [facility] section<sup>1</sup> [id number] [facility]sup[facility]</sup> 62173953 2002 [facility] Colon<sup>3</sup> 051774344 colon resection [facility]ur [id number] [facility]<sup>4</sup> 79156919 [facility] Knee [facility]<sup>5</sup> 17301752 2005 [facility] Nerve block<sup>6</sup> 44001614 and faucet injections 2012 [facility] Operation<sup>7, 8</sup> [id number] femur [id number] [facility] Operation<sup>9</sup> 301070947 resection of colon [facility] Tonsillectomy 650323810 [facility] Vertical banded gastroplasty<sup>10</sup> 07554317 1987 [facility]
--- OUTSIDE RECORDS SUMMARY | 2018-07-14 05:10 | XMS REPORT | CCD ---
Author Author Auto Generated Organization [facility] Address Unknown Phone Unavailable Care Team Providers Care Train Clerk Name Role Phone Shaka Bowles RP Allergies, Adverse Reactions, Alerts Substance Reaction Status penicillins Active Problem List Condition Effective Dates Status Asthma Resolved Depression Resolved HLD - Hyperlipidemia Resolved HTN - Hypertension Resolved Morbid obesity Resolved Osteoarthritis Resolved Reflux Resolved Medications Medication Instructions Start Date End Date Status potassium phosphate 30 mmol, 10 mL, Route: IVPB, ONCE, 07/26/2013 07/26/2013 Completed + Sodium Chloride Dosing Weight 127.273, kg, Start 0.9% IV 250 mL date: 07/26/13 7:42:00, Stop date: 07/26/13 7:42:00(Same as: K Phosphate.) 1 mMol phoshate has 1.47 mEq potassium Infuse over 4 hours Symbicort 80/4.5 2 puff, INHALATION, BID, 10 gm, 07/12/2013 Ordered inhalation aerosol Substitution Allowed, Maintenance, with adapter AERO Zofran 4 mg, 2 mL, Route: IVP, Drug form: 07/25/2013 07/26/2013 Discontinued INJ, Q6H, PRN Nausea & Vomiting, Start date: 07/25/13 0:30:00, Duration: 30 day, Stop date: 08/24/13 0:29:00(Same as: Zofran) heparin 5,000 unit, 1 mL, Route: SUB-Q, 07/25/2013 07/26/2013 Discontinued Drug form: INJ, Q8H, Start date: 07/25/13 8:00:00, Duration: 30 day, Stop date: 08/24/13 0:00:00porcine heparin naloxone 0.4 mg, 1 mL, Route: IV, Drug form: 07/25/2013 07/26/2013 Discontinued INJ, PRN, PRN Narcotic Reversal, Start date: 07/25/13 0:34:00, Duration: 30 day, Stop date: 08/23/13 23:33:00(Same as: Narcan) Lactated Ringers 1,000 mL, Rate: 100 ml/hr, Infuse 07/25/2013 07/25/2013 Discontinued Injection IV 1,000 over: 10 hr, Route: IV, Dosing mL Weight 127.273 kg, Total Volume: 1,000, Start date: 07/25/13 0:23:00, Duration: 30 day, Stop date: 08/24/13 0:22:00 LR IV 1,000 mL 1,000 mL, Rate: 75 ml/hr, Infuse 07/25/2013 07/26/2013 Discontinued over: 13.3 hr, Route: IV, Dosing Weight 127.273 kg, Total Volume: 1,000, Start date: 07/25/13 13:42:00, Duration: 30 day, Stop date: 08/24/13 13:41:00 acetaminophen-hydroc 15 mL, Route: PO, Drug Form: SOLN, 07/25/2013 07/26/2013 Discontinued odone 300 mg-10 Dosing Weight 127.273, kg, Q4H, PRN mg/15 mL oral liquid Pain, Start date: 07/25/13 13:42:00, Duration: 30 day, Stop date: 08/24/13 13:41:00Do not exceed 4gm/day of acetaminophen. (Same as: Zolvit) acetaminophen-hydroc 30 mL, Route: PO, Drug Form: SOLN, 07/25/2013 07/26/2013 Discontinued odone 300 mg-10 Dosing Weight 127.273, kg, Q4H, PRN mg/15 mL oral liquid Pain, Start date: 07/25/13 13:42:00, Duration: 30 day, Stop date: 08/24/13 13:41:00Do not exceed 4gm/day of acetaminophen. (Same as: Zolvit) D5W 1/2NS + KCL 1,000 mL, Rate: 75 ml/hr, Infuse 07/25/2013 07/25/2013 Discontinued 20mEq/L 1000ml over: 13.3 hr, Route: IV, Dosing (Premix) 1,000 mL Weight 127.273 kg, Total Volume: 1,000, Start date: 07/25/13 6:42:00, Duration: 30 day, Stop date: 08/24/13 6:41:00PREMIX IV - Do Not Alter Ofirmev 1,000 mg, 100 mL, Route: IV, Drug 07/23/2013 07/23/2013 Deleted form: INJ, PRE OP, Start date: 07/23/13 4:00:00, Duration: 1 doses or times, Stop date: 07/23/13 22:00:00Infuse over 15 minutes Do not exceed 4gm/day of acetaminophen Nasonex 50 mcg/inh 2 spray, NASAL, Daily, PRN for 07/12/2013 Ordered nasal spray allergy symptoms, 17 gm, Substitute Allowed, SPRY Vitamin B-12 1000 Substitution Allowed 07/12/2013 07/26/2013 Discontinued mcg sublingual tablet scopolamine 1 patch, Route: TOP, Drug form: 07/23/2013 07/23/2013 Deleted ERFILM, PRE OP, Start date: 07/23/13 4:00:00, Duration: 1 doses or times, Stop date: 07/23/13 22:00:00Change patch every 72 hours (Same as: Transderm-Scop) heparin 5,000 unit, 1 mL, Route: SUB-Q, 07/23/2013 07/23/2013 Deleted Drug form: INJ, PRE OP, Start date: 07/23/13 4:00:00, Duration: 1 doses or times, Stop date: 07/23/13 22:00:00porcine heparin promethazine 6.25 mg, Route: IM, ONCE, Dosing 07/24/2013 07/24/2013 Completed Weight 127.273, kg, Start date: 07/24/13 19:21:00, Stop date: 07/24/13 19:21:00 Celebrex 200 mg oral Substitution Allowed 07/12/2013 07/26/2013 Discontinued capsule vitamin A 8000 units Substitution Allowed 07/12/2013 07/26/2013 Discontinued oral capsule labetalol 5 mg, Route: IVP, Q5Min, Dosing 07/24/2013 07/24/2013 Discontinued Weight 127.273, kg, PRN Elevated BP, Start date: 07/24/13 18:02:00, Duration: 5 doses or times, Stop date: Limited # of times fentanyl 25 microgram, Route: IVP, Q5Min, 07/24/2013 07/24/2013 Discontinued Dosing Weight 127.273, kg, PRN Pain Score 4-6, Start date: 07/24/13 18:02:00, Duration: 4 doses or times, Stop date: Limited # of times flumazenil 0.2 mg, Route: IVP, PRN, Dosing 07/24/2013 07/24/2013 Discontinued Weight 127.273, kg, PRN Benzodiazepine Reversal, Initial dose, Start date: 07/24/13 18:02:00, Duration: 30 day, Stop date: 08/23/13 17:01:00 naloxone 0.04 mg, Route: IVP, Q2MIN, Dosing 07/24/2013 07/24/2013 Discontinued Weight 127.273, kg, PRN Narcotic Reversal, Start date: 07/24/13 18:02:00, Duration: 8 doses or times, Stop date: Limited # of times ondansetron 4 mg, Route: IVP, ONCE, Dosing 07/24/2013 07/24/2013 Completed Weight 127.273, kg, PRN Nausea & Vomiting, Start date: 07/24/13 18:02:00 hydromorphone 15 mg IV, Start date: 07/25/13 0:34:00, 07/25/2013 07/26/2013 Discontinued Duration: 30, 30 ml, 127.273 Dextrose 5% with 1,000 mL, Rate: 75 ml/hr, Infuse 07/25/2013 07/25/2013 Discontinued 0.45% NaCl IV 1,000 over: 13.3 hr, Route: IV, Dosing mL Weight 127.273 kg, Total Volume: 1,000, Start date: 07/25/13 13:04:00, Duration: 30 day, Stop date: 08/24/13 13:03:00 Vitamin D 50,000 50,000 IntlUnit, 1 cap, PO, 5X Day, 07/12/2013 07/26/2013 Discontinued intl units oral 24 cap, Substitution Allowed, CAP capsule citalopram 40 mg 40 mg, 1 tab, PO, Daily, 30 tab, 07/12/2013 Ordered oral tablet Substitution Allowed, TAB Vytorin 10 mg-20 mg 1 tab, PO, Daily, 30 tab, 07/12/2013 Ordered oral tablet Substitution Allowed, Maintenance, TAB bupivacaine liposome 20 mL, Route: InFILtration(local), 07/24/2013 07/25/2013 Completed Drug Form: INJ, ONCE, Start date: 07/24/13 12:46:00, Stop date: 07/24/13 12:46:00(Same as: Exparel) NOT FOR IV use Postoperative analgesia: Infiltration (local): Dose is based on surgical site and volume required to cover the area (in general, the maximum total dose is 266 mg).Bunionectomy: 7 mL into the tissues surrounding the osteotomy and 1 mL into the subcutaneous tissue of the surgical site (total dose=8 mL [106 mg])Hemorrhoidectomy: 30 mL (20 mL vial diluted with 10 mL NS) divided and administered as 6 injections of 5 mL each (total dose=30 mL [266 mg]) Multiple Vitamins 1 tab, PO, Daily, 30 tab, 07/12/2013 07/26/2013 Discontinued oral tablet Substitution Allowed, Maintenance, TAB Aleve Caplet 220 mg Substitution Allowed 07/12/2013 07/26/2013 Discontinued oral tablet Bystolic 5 mg oral 5 mg, 1 tab, PO, Daily, 30 tab, 07/12/2013 Ordered tablet Substitution Allowed, TAB fosinopril 10 mg 10 mg, 1 tab, PO, Daily, 30 tab, 07/12/2013 Ordered oral tablet Substitution Allowed, TAB Prilosec 10 mg oral 10 mg, 1 cap, PO, Daily, 30 cap, 07/12/2013 07/26/2013 Discontinued delayed release Substitution Allowed capsule Levaquin 500 mg, Route: IVPB, PRE OP, Dosing 07/24/2013 07/24/2013 Completed Weight 127.273, kg, Start date: 07/24/13 13:59:00 acetaminophen-hydroc 15 ml, PO, Q4H, PRN, not to exceed 07/26/2013 Ordered odone 325 mg-7.5 6 doses/day, 500 mL, as needed for mg/15 mL oral pain, Substitution Allowed, solution Maintenance, SOLN not to exceed 6 doses/day Phenergan 12.5 mg, 0.5 mL, Route: IVPB, Drug 07/25/2013 07/26/2013 Discontinued form: INJ, Q4H, PRN Nausea & Vomiting, Start date: 07/25/13 0:28:00, Stop date: 08/24/13 0:27:00Do not give IV push. (Same as: Phenergan) Ofirmev 1,000 mg, 100 mL, Route: IV, Drug 07/24/2013 07/25/2013 Completed form: INJ, PRE OP, Start date: 07/24/13 6:00:00, Duration: 1 doses or times, Stop date: 07/24/13 22:00:00Infuse over 15 minutes Do not exceed 4gm/day of acetaminophen heparin 5,000 unit, 1 mL, Route: SUB-Q, 07/24/2013 07/24/2013 Completed Drug form: INJ, PRE OP, Start date: 07/24/13 6:00:00, Duration: 1 doses or times, Stop date: 07/24/13 22:00:00porcine heparin scopolamine 1 patch, Route: TOP, Drug form: 07/24/2013 07/24/2013 Completed ERFILM, PRE OP, Start date: 07/24/13 6:00:00, Duration: 1 doses or times, Stop date: 07/24/13 22:00:00Change patch every 72 hours (Same as: Transderm-Scop) Levaquin 750 mg, 150 mL, Route: IV, Drug 07/25/2013 07/25/2013 Completed form: SOLN, ONCE, Dosing Weight 127.273, kg, Start date: 07/25/13 7:04:00, Stop date: 07/25/13 7:04:00(Same as:Levaquin) Bystolic 5 mg, 1 tab, Route: PO, Drug form: 07/25/2013 07/26/2013 Discontinued TAB, Daily, Start date: 07/25/13 9:00:00, Duration: 30 day, Stop date: 08/23/13 9:00:00(same as: Bystolic) FiberCon 625 mg oral Substitution Allowed 07/12/2013 07/26/2013 Discontinued tablet ketorolac 30 mg, 1 mL, Route: IV, Drug form: 07/25/2013 07/26/2013 Completed INJ, Q6H, Dosing Weight 127.273, kg, Priority: STAT, Start date: 07/25/13 10:15:00, Duration: 1 day, Stop date: 07/26/13 10:00:00(Same as:Toradol) IV bolus must be given >15 seconds. Give IM administration slowly and deeply into the muscle. Not for use > 4 days albuterol 0.083% 2.49 mg, 3 mL, Route: NEB, Drug 07/25/2013 07/26/2013 Discontinued inhalation solution form: SOLN, RQ6H, Start date: 07/25/13 2:00:00, Duration: 30 day, Stop date: 08/23/13 20:00:00SEE RT DOCUMENTATION (Same as: Proventil) Benadryl 25 mg, 0.5 mL, Route: IV, Drug 07/25/2013 07/26/2013 Discontinued form: INJ, Bedtime, PRN Insomnia, Start date: 07/25/13 0:26:00, Duration: 30 day, Stop date: 08/24/13 0:25:00(Same as: Benadryl) Ventolin HFA 90 2 puff, INHALATION, QID, 17 gm, 07/12/2013 Ordered mcg/inh inhalation Substitution Allowed, Maintenance, aerosol with adapter AERO Celexa 40 mg, 2 tab, Route: PO, Drug form: 07/25/2013 07/26/2013 Discontinued TAB, Daily, Start date: 07/25/13 9:00:00, Duration: 30 day, Stop date: 08/23/13 9:00:00(Same As: Celexa) Vital Signs Most recent to oldest [Reference Range]: 1 2 3 Height 157.48 cm (07/25/2013 01:46:00) 160.02 cm (07/24/2013 12:45:00) 157.48 cm (07/12/2013 15:13:00) Temperature Oral [96.4-99.1 DegF] 98.1 DegF (07/26/2013 16:26:00) 97.9 DegF (07/26/2013 12:35:00) 97.4 DegF (07/26/2013 04:44:00) Systolic Blood Pressure [90-140 mmHg] 109 mmHg (07/26/2013 16:26:00) 115 mmHg (07/26/2013 12:35:00) 116 mmHg (07/26/2013 08:32:00) Diastolic Blood Pressure [60-90 mmHg] 51 mmHg *LOW* (07/26/2013 16:26:00) 53 mmHg *LOW* (07/26/2013 12:35:00) 54 mmHg *LOW* (07/26/2013 08:32:00) Respiratory Rate [14-20 BRMIN] 19 BRMIN (07/26/2013 16:26:00) 19 BRMIN (07/26/2013 12:35:00) 16 BRMIN (07/26/2013 11:38:00) Peripheral Pulse Rate [60-100 bpm] 69 bpm (07/26/2013 16:26:00) 70 bpm (07/26/2013 12:35:00) 74 bpm (07/26/2013 08:32:00) Weight 127.273 kg (07/25/2013 01:46:00) 127.273 kg (07/24/2013 12:45:00) 134.545 kg (07/12/2013 15:13:00) Results BEDSIDE GLUCOSE TESTING Most recent to oldest [Reference Range]: 1 2 3 Glucose POC [70-99 mg/dL] 84 mg/dL 1 (07/26/2013 16:08:00) 68 mg/dL 2 *LOW* (07/26/2013 12:10:00) 85 mg/dL 3 (07/26/2013 08:21:00) Gluc POC Comment 1 Notify RN/MD *NA* (07/26/2013 16:08:00) Notify RN/MD *NA* (07/26/2013 12:10:00) Notify RN/MD *NA* (07/26/2013 08:21:00) 1Interpretive Data: Upper Reportable Limit: 200 mg/dL. 2Interpretive Data: Upper Reportable Limit: 200 mg/dL. 3Interpretive Data: Upper Reportable Limit: 200 mg/dL. URINALYSIS Most recent to oldest [Reference Range]: 1 2 3 UA Turbidity [Clear] Slight *ABN* (07/12/2013 14:00:00) UA Color [Yellow] Yellow *NA* (07/12/2013 14:00:00) UA pH [5.0-8.0] 6.0 (07/12/2013 14:00:00) UA Spec Grav [<=1.030] 1.014 (07/12/2013 14:00:00) UA Glucose [Negative mg/dL] Negative mg/dL *NA* (07/12/2013 14:00:00) UA Blood [Negative] Negative (07/12/2013 14:00:00) UA Ketones [Negative mg/dL] Negative mg/dL *NA* (07/12/2013 14:00:00) UA Protein [Negative mg/dL] Negative mg/dL (07/12/2013 14:00:00) UA Urobilinogen [0.1-1.0 mg/dL] <=1.0 mg/dL *NA* (07/12/2013 14:00:00) UA Bili [Negative] Negative *NA* (07/12/2013 14:00:00) UA Leuk Est [Negative] Large *ABN* (07/12/2013 14:00:00) UA Nitrite [Negative] Negative (07/12/2013 14:00:00) UA WBC [0-5 /HPF] 27 /HPF *HI* (07/12/2013 14:00:00) UA Bacteria [None Seen /HPF] Occasional /HPF *NA* (07/12/2013 14:00:00) UA Sq Epi [Few /LPF] Many /LPF *ABN* (07/12/2013 14:00:00) UA Mucus [None Seen /LPF] Few /LPF *NA* (07/12/2013 14:00:00) BLOOD BANK RESULTS Most recent to oldest [Reference Range]: 1 2 3 ABO/Rh A POS *Unknown* (07/24/2013 12:50:00) Antibody Scrn Negative (07/24/2013 12:50:00) CHEMISTRY Most recent to oldest [Reference Range]: 1 2 3 Sodium Lvl [135-145 mEq/L] 145 mEq/L (07/26/2013 04:53:00) 138 mEq/L (07/25/2013 02:44:00) 142 mEq/L (07/12/2013 14:00:00) Potassium Lvl [3.5-5.1 mEq/L] 3.6 mEq/L (07/26/2013 04:53:00) 4.5 mEq/L (07/25/2013 02:44:00) 4.3 mEq/L (07/12/2013 14:00:00) Chloride Lvl [95-109 mEq/L] 105 mEq/L (07/26/2013 04:53:00) 103 mEq/L (07/25/2013 02:44:00) 104 mEq/L (07/12/2013 14:00:00) CO2 [24-32 mEq/L] 28 mEq/L (07/26/2013 04:53:00) 25 mEq/L (07/25/2013 02:44:00) 28 mEq/L (07/12/2013 14:00:00) AGAP [10.0-20.0 mEq/L] 15.6 mEq/L (07/26/2013 04:53:00) 14.5 mEq/L (07/25/2013 02:44:00) 14.3 mEq/L (07/12/2013 14:00:00) Creatinine Lvl [0.5-1.4 mg/dL] 0.8 mg/dL (07/26/2013 04:53:00) 0.8 mg/dL (07/25/2013 02:44:00) 0.8 mg/dL (07/12/2013 14:00:00) eGFR 78 mL/min/1.73m2 4 *NA* (07/26/2013 04:53:00) 78 mL/min/1.73m2 5 *NA* (07/25/2013 02:44:00) 78 mL/min/1.73m2 6 *NA* (07/12/2013 14:00:00) BUN [7-22 mg/dL] 11 mg/dL (07/26/2013 04:53:00) 16 mg/dL (07/25/2013 02:44:00) 18 mg/dL (07/12/2013 14:00:00) B/C Ratio [6-25] 22 (07/12/2013 14:00:00) Glucose Lvl [70-99 mg/dL] 89 mg/dL 7 (07/26/2013 04:53:00) 163 mg/dL 8 *HI* (07/25/2013 02:44:00) 89 mg/dL 9 (07/12/2013 14:00:00) Total Protein [6.4-8.4 g/dL] 7.0 g/dL (07/12/2013:00:00) Albumin Lvl [3.5-5.0 g/dL] 3.9 g/dL (07/12/2013:00:00) Globulin [2.0-4.0 g/dL] 3.1 g/dL (07/12/2013:00:00) A/G Ratio [0.7-1.6] 1.3 (07/12/2013:00:00) Calcium Lvl [8.5-10.5 mg/dL] 8.3 mg/dL *LOW* (07/26/2013 04:53:00) 8.1 mg/dL *LOW* (07/25/2013 02:44:00) 9.1 mg/dL (07/12/2013:00:00) Phosphorus [2.5-4.5 mg/dL] 1.8 mg/dL *LOW* (07/26/2013 04:53:00) 3.2 mg/dL (07/25/2013 02:44:00) Magnesium Lvl [1.8-2.4 mg/dL] 1.9 mg/dL (07/26/2013 04:53:00) 1.8 mg/dL (07/25/2013 02:44:00) ALT [0-65 unit/L] 24 unit/L (07/12/2013:00:00) AST [0-37 unit/L] 18 unit/L (07/12/2013:00:00) Alk Phos [39-136 unit/L] 75 unit/L (07/12/2013:00:00) Bili Total [0.2-1.3 mg/dL] 0.5 mg/dL (07/12/2013:00:00) 4Result Comment: The eGFR is calculated using [...] from the National Kidney Disease Education Program ( NKDEP) which additionally recommends that when the eGFR is used in patients with extremes of body mass index for purposes of drug dosing, the eGFR should be mul tiplied by the estimated BMI. 5Result Comment: The eGFR is calculated using [...] from the National Kidney Disease Education Program ( NKDEP) which additionally recommends that when the eGFR is used in patients with extremes of body mass index for purposes of drug dosing, the eGFR should be mul tiplied by the estimated BMI. 6Result Comment: The eGFR is calculated using [...] from the National Kidney Disease Education Program ( NKDEP) which additionally recommends that when the eGFR is used in patients with extremes of body mass index for purposes of drug dosing, the eGFR should be mul tiplied by the estimated BMI. 7Interpretive Data: Adult reference range values reflect the clinical guidelines of the [place] [employer]. 8Interpretive Data: Adult reference range values reflect the clinical guidelines of the [place] [employer]. 9Interpretive Data: Adult reference range values reflect the clinical guidelines of the [place] [employer]. HEMATOLOGY Most recent to oldest [Reference Range]: 1 2 3 WBC [3.7-10.4 K/CMM] 7.5 K/CMM (07/26/2013 04:53:00) 9.6 K/CMM (07/25/2013 02:44:00) 6.6 K/CMM (07/12/2013 14:00:00) RBC [4.20-5.40 M/CMM] 4.32 M/CMM (07/26/2013 04:53:00) 4.81 M/CMM (07/25/2013 02:44:00) 4.93 M/CMM (07/12/2013 14:00:00) Hgb [12.0-16.0 g/dL] 11.6 g/dL *LOW* (07/26/2013 04:53:00) 13.0 g/dL (07/25/2013 02:44:00) 13.5 g/dL (07/12/2013 14:00:00) Hct [36.0-48.0 %] 36.6 % (07/26/2013 04:53:00) 40.9 % (07/25/2013 02:44:00) 41.2 % (07/12/2013 14:00:00) MCV [81.0-99.0 fL] 84.9 fL (07/26/2013 04:53:00) 84.9 fL (07/25/2013 02:44:00) 83.6 fL (07/12/2013 14:00:00) MCH [27.0-31.0 pg] 27.0 pg (07/26/2013 04:53:00) 27.1 pg (07/25/2013 02:44:00) 27.3 pg (07/12/2013 14:00:00) MCHC [32.0-36.0 g/dL] 31.8 g/dL *LOW* (07/26/2013 04:53:00) 31.9 g/dL *LOW* (07/25/2013 02:44:00) 32.7 g/dL (07/12/2013 14:00:00) RDW [11.5-14.5 %] 15.5 % *HI* (07/26/2013 04:53:00) 15.3 % *HI* (07/25/2013 02:44:00) 15.1 % *HI* (07/12/2013 14:00:00) Platelet [133-450 K/CMM] 101 K/CMM *LOW* (07/26/2013 04:53:00) 123 K/CMM *LOW* (07/25/2013 02:44:00) 159 K/CMM (07/12/2013 14:00:00) MPV [7.4-10.4 fL] 9.1 fL (07/26/2013 04:53:00) 9.2 fL (07/25/2013 02:44:00) 9.3 fL (07/12/2013 14:00:00) Segs [45.0-75.0 %] 63.9 % (07/26/2013 04:53:00) 89.8 % *HI* (07/25/2013 02:44:00) 63.7 % (07/12/2013 14:00:00) Lymphocytes [20.0-40.0 %] 24.7 % (07/26/2013 04:53:00) 6.2 % *LOW* (07/25/2013 02:44:00) 25.2 % (07/12/2013 14:00:00) Monocytes [2.0-12.0 %] 10.8 % (07/26/2013 04:53:00) 3.8 % (07/25/2013 02:44:00) 9.3 % (07/12/2013 14:00:00) Eosinophils [0.0-4.0 %] 0.3 % (07/26/2013 04:53:00) 0.1 % (07/25/2013 02:44:00) 1.3 % (07/12/2013 14:00:00) Basophils [0.0-1.0 %] 0.3 % (07/26/2013 04:53:00) 0.1 % (07/25/2013 02:44:00) 0.5 % (07/12/2013 14:00:00) Segs-Bands # [1.5-8.1 K/CMM] 4.8 K/CMM (07/26/2013 04:53:00) 8.6 K/CMM *HI* (07/25/2013 02:44:00) 4.2 K/CMM (07/12/2013 14:00:00) Lymphocytes # [1.0-5.5 K/CMM] 1.9 K/CMM (07/26/2013 04:53:00) 0.6 K/CMM *LOW* (07/25/2013 02:44:00) 1.7 K/CMM (07/12/2013 14:00:00) Monocytes # [0.0-0.8 K/CMM] 0.8 K/CMM (07/26/2013 04:53:00) 0.4 K/CMM (07/25/2013 02:44:00) 0.6 K/CMM (07/12/2013 14:00:00) Eosinophils # [0.0-0.5 K/CMM] 0.1 K/CMM (07/12/2013 14:00:00) RBC Morph Normal (07/26/2013 04:53:00) Plt Morph Normal (07/26/2013 04:53:00) Procedures Procedures Date Related Diagnosis section1 Cholecystectomy2 Colon3 Femur Gastric bypass revision 07/24/2013 00:00:00 Injection4 Knee replacement5 Nerve block6 Operation7 Operation8, 9 Tonsillectomy Vertical banded [id number] 3colon resection 4lumbar facet injections [id number] 6and faucet injections 2012 7resection of colon 94723 9femur repair [id number]
--- OUTSIDE RECORDS SUMMARY | 2018-07-14 05:10 | XMS REPORT | CCD ---
Author Author Auto Generated Organization [facility] Address Unknown Phone Unavailable Care Team Providers Care Obstetrician Name Role Phone Shaka Bowles RP Allergies, [...] g/dL (07/12/2013:00:00) Globulin [2.0-4.0 g/dL] 3.1 g/dL (07/12/201300:00) A/G Ratio [0.7-1.6] 1.3 (07/12/2013:00:00) Calcium Lvl [...] values reflect the clinical guidelines of the [place] [employer]. 8Interpretive Data: Adult reference range values reflect the clinical guidelines of the [place] [employer]. 9Interpretive Data: Adult reference range values reflect the clinical guidelines of the [place] [employer]. HEMATOLOGY Most recent to oldest [...] block6 Operation7 Operation8, 9 Tonsillectomy Vertical banded [id number] [id number] 3colon resection 4lumbar facet injections [id number] 6and faucet injections 2012 7resection of colon 06984 9femur repair [id number]
--- OUTSIDE RECORDS SUMMARY | 2018-07-14 05:10 | XMS REPORT | CCD ---
Author Author Auto Generated Organization [facility] Address Unknown Phone Unavailable Care Team Providers Care Sole Painter Name Role Phone Shaka Bowles RP Allergies, [...] values reflect the clinical guidelines of the [place] [employer]. 8Interpretive Data: Adult reference range values reflect the clinical guidelines of the [place] [employer]. 9Interpretive Data: Adult reference range values reflect the clinical guidelines of the [place] [employer]. HEMATOLOGY Most recent to oldest [...] block6 Operation7 Operation8, 9 Tonsillectomy Vertical banded [id number] 50248 3colon resection 4lumbar facet injections 16466 6and faucet injections 2012 7resection of colon 71265 9femur repair [id number]
--- OUTSIDE RECORDS SUMMARY | 2018-07-14 05:11 | XMS REPORT | CCD ---
Author Author Auto Generated Organization [facility] Address Unknown Phone Unavailable Care Team Providers Care [employer] H[employer] Instructor Name Role Phone Shaka Bowles RP Allergies, [...] values reflect the clinical guidelines of the [place] [employer]. 8Interpretive Data: Adult reference range values reflect the clinical guidelines of the [place] [employer]. 9Interpretive Data: Adult reference range values reflect the clinical guidelines of the [place] [employer]. HEMATOLOGY Most recent to oldest [...] block6 Operation7 Operation8, 9 Tonsillectomy Vertical banded [id number] 95331 92367 3colon resection 4lumbar facet injections [id number] 6and faucet injections 2012 7resection of colon 88941 9femur repair [id number]
--- OUTSIDE RECORDS SUMMARY | 2018-07-14 05:11 | XMS REPORT | CCD ---
Author Author Auto Generated Organization [facility] Address Unknown Phone Unavailable Care Team Providers Care Hothouse Worker Name Role Phone Shaka Bowles RP Allergies, [...] block6 Operation7 Operation8, 9 Tonsillectomy Vertical banded [id number] [id number] 3colon resection 4lumbar facet injections 56756 6and faucet injections 2012 7resection of colon 75529 9femur repair [id number]
--- OUTSIDE RECORDS SUMMARY | 2018-07-14 05:12 | XMS REPORT | Summary of Care ---
Author Author [facility] [place] Organization [facility] [place] Address Unknown Phone Unavailable Encounter HQ Encntr_laura(FIN) [id number] Date(s): 11/27/16 - 11/27/16 [facility] [place] [address] [place] [phone] Discharge Disposition: Home or Self Care Attending Physician: Patsy Ortiz MD Vital Signs No data available for this section Problem List Condition Effective Dates Status Health Status Informant Asthma(Confirmed) Resolved Depression(Confirmed Resolved ) HLD - Resolved Hyperlipidemia(Confi rmed) HTN - Resolved Hypertension(Confirm ed) Morbid Resolved obesity(Confirmed) Osteoarthritis(Confi Resolved rmed) Reflux(Confirmed) Resolved Allergies, Adverse Reactions, Alerts Substance Reaction Severity Status penicillins Active Medications No data available for this section Results No data available for this section Immunizations No data available for this section Procedures Procedure Date Related Diagnosis Body Site Gastric bypass revision 07/24/13 section1 Cholecystectomy2 Colon3 Femur Injection4 Knee replacement5 Nerve block6 Operation7, 8 Operation9 Tonsillectomy Vertical banded [id number] 74366 3colon resection 4lumbar facet injections 06171 6and faucet injections 2013 7femur repair 96695 9resection of colon [id number] Social History No data available for this section Assessment and Plan No data available for this section
--- OUTSIDE RECORDS SUMMARY | 2018-07-14 05:12 | XMS REPORT | Summary of Care ---
Author Author [facility] Outpatient Imaging [facility] Outpatient [facility] Address Unknown Phone Unavailable Encounter HQ Tono_laura(FIN) [id number] Date(s): 04/04/18 - 04/04/18 [facility] [address] [facility], [address] [place] [phone] Discharge Disposition: Home or Self Care Attending Physician: Isha Pro MD Vital Signs No data available for [...] Procedures Procedure Date Related Diagnosis Body Site Status Gastric bypass revision 07/24/13 Completed section1 Completed Cholecystectomy2 Completed Colon3 Completed Femur Completed Injection4 Completed Knee replacement5 Completed Nerve block6 Completed Operation7, 8 Completed Operation9 Completed Tonsillectomy Completed Vertical banded [id number] Completed 19700 35890 3colon resection 4lumbar facet injections 39224 6and faucet injections 2012 7femur repair 49255 9resection of colon 364118 Social History No data available for this section Assessment and Plan No data available for this section
--- OUTSIDE RECORDS SUMMARY | 2018-07-14 05:12 | XMS REPORT | Summary of Care ---
Author Author [facility] Outpatient [facility] [place] Organization [facility] [place] Address Unknown Phone Unavailable Encounter HQ Tono_laura(FIN) [id number] Date(s): 12/15/17 - 12/15/17 [facility] [place] [address] [place] [phone] [facility] [phone] Encounter Diagnosis Encounter for screening mammogram for malignant neoplasm of breast (Final) - 12/21/17 Encounter for screening for osteoporosis (Final) - Unspecified menopausal and perimenopausal disorder (Final) - Discharge Disposition: Home or Self Care Attending [...] Completed Operation9 Completed Tonsillectomy Completed Vertical banded [id number] Completed 54872 66451 3colon resection 4lumbar facet injections 47534 6and faucet injections 2012 7femur repair 91554 9resection of colon [id number] Social History No data available for this section Assessment and Plan No data available for this section
--- OUTSIDE RECORDS SUMMARY | 2018-07-14 05:12 | XMS REPORT | Summary of Care ---
Author Author [facility] Outpatient Imaging - [place] Organization [facility] [place] Address Unknown Phone Unavailable Encounter HQ Encntr_alias(FIN) [id number] Date(s): 07/16/15 - 07/16/15 [facility] Out[facility] - [place] [address] [place] [id number] [phone] Discharge Disposition: Home Attending Physician: Patsy Ortiz MD Vital Signs [...] Colon3 Femur Injection4 Knee replacement5 Nerve block6 Operation7 Operation8, 9 Tonsillectomy Vertical banded [id number] 77447 80918 3colon resection 4lumbar facet injections 71257 6and faucet injections 2012 7resection of colon 46004 9femur repair [id number] Social History No data available for this section Assessment and Plan No data available for this section
[2018-07-14 07:00] VITALS: BP 107/84
== END | disposition home or self-care (01) ==
LOC: OR 05:00
PROVIDERS: ATTEND Physical Medicine & Rehabilitation Pain Medicine
DX: M17.12 Unilateral primary osteoarthritis, left knee (principal); M54.16 Radiculopathy, lumbar region; M47.812 Spondylosis without myelopathy or radiculopathy, cervical region; M46.1 Sacroiliitis, not elsewhere classified; M70.62 Trochanteric bursitis, left hip; M70.61 Trochanteric bursitis, right hip; E66.9 Obesity, unspecified; I10 Essential (primary) hypertension; R20.0 Anesthesia of skin; J45.909 Unspecified asthma, uncomplicated; F41.9 Anxiety disorder, unspecified; Z88.0 Allergy status to penicillin; Z01.810 Encounter for preprocedural cardiovascular examination; Z01.812 Encounter for preprocedural laboratory examination; Z68.32 Body mass index [BMI] 32.0-32.9, adult
CPT/HCPCS: 20610; 36415; 85025; 93005; J2001 ×2; J2250; J2704; J7325; Q9967; 77003

== ENCOUNTER → 2018-07-21 | Day surgery (SDC) | payer MEDICARE, OTHER ==
[~2018-07-21] MED LIST changes: -HYALURONIDASE 16 MG/2 ML SYR IU ONE; +HYALURONIDASE 16 MG/2 ML SYR ONE; +IOPAMIDOL 370 MG/ML 200 ML INFUS..BTL INJ ONE; -LIDOCAINE HCL 2% LOCAL INJ 5 ML SDV VIAL INJ ONE; +SODIUM CHLORIDE 0.9% 50ML 50 ML ONE
[2018-07-21 08:00] VITALS: BP 137/74
== END | disposition home or self-care (01) ==
LOC: OR 05:09
PROVIDERS: ATTEND Physical Medicine & Rehabilitation Pain Medicine
DX: M17.12 Unilateral primary osteoarthritis, left knee (principal); J45.909 Unspecified asthma, uncomplicated; M46.1 Sacroiliitis, not elsewhere classified; M70.62 Trochanteric bursitis, left hip; M70.61 Trochanteric bursitis, right hip; M47.812 Spondylosis without myelopathy or radiculopathy, cervical region; M54.16 Radiculopathy, lumbar region; R20.0 Anesthesia of skin; Z96.651 Presence of right artificial knee joint; I10 Essential (primary) hypertension; Z88.0 Allergy status to penicillin; Z68.32 Body mass index [BMI] 32.0-32.9, adult
CPT/HCPCS: 20610; 77002; 93005; J2001; J2250; J2704; J7325; Q9967 ×2; 76000

== ENCOUNTER → 2018-07-26 | Day surgery (SDC) | payer MEDICARE, OTHER ==
[~2018-07-26] MED LIST changes: +BALANCED SALT SOLN (OPTH) 15 ML BTL IO ONE; +GELATIN SPONGE 12-7MM ONE; -HYALURONIDASE 16 MG/2 ML SYR ONE; -IOPAMIDOL 200 MG/ML 20 ML VIAL IT ONE; -IOPAMIDOL 370 MG/ML 200 ML INFUS..BTL INJ ONE; +LIDOCAINE 2% /EPINEPHRINE 20 ML SDV INJ ONE; -LIDOCAINE HCL 1% 30ML-PF VIAL ONE; +NEOMYCIN/POLYMYXIN/DEX (OPTH) 3.5 GM TUBE ONE; -SODIUM CHLORIDE 0.9% 50ML 50 ML ONE
[2018-07-26 17:45] VITALS: BP 126/71
== END | disposition home or self-care (01) ==
LOC: OR 14:15
PROVIDERS: ATTEND Ophthalmology
DX: H02.834 Dermatochalasis of left upper eyelid (principal); H02.831 Dermatochalasis of right upper eyelid
CPT/HCPCS: 15823; J2001; J2250; J2704

== ENCOUNTER → 2018-08-04 | Day surgery (SDC) | payer MEDICARE, OTHER ==
[~2018-08-04] MED LIST changes: -BALANCED SALT SOLN (OPTH) 15 ML BTL IO ONE; -GELATIN SPONGE 12-7MM ONE; +HYALURONIDASE 16 MG/2 ML SYR IU ONE; +HYALURONIDASE 16 MG/2 ML SYR ONE; +IOPAMIDOL 200 MG/ML 20 ML VIAL IT ONE; -LIDOCAINE 2% /EPINEPHRINE 20 ML SDV INJ ONE; +LIDOCAINE HCL 1% 30ML-PF VIAL ONE; +LIDOCAINE HCL 2% LOCAL INJ 5 ML SDV VIAL INJ ONE; -NEOMYCIN/POLYMYXIN/DEX (OPTH) 3.5 GM TUBE ONE; +PROPOFOL IV EMULSION 10 MG/ML 20 ML VIAL IV ONE; -PROPOFOL IV EMULSION 10 MG/ML 20 ML VIAL ONE
[2018-08-04 08:15] VITALS: BP 128/66
== END | disposition home or self-care (01) ==
LOC: OR 05:25
PROVIDERS: ATTEND Physical Medicine & Rehabilitation Pain Medicine
DX: M17.12 Unilateral primary osteoarthritis, left knee (principal); M70.62 Trochanteric bursitis, left hip; M70.61 Trochanteric bursitis, right hip; M46.1 Sacroiliitis, not elsewhere classified; G57.03 Lesion of sciatic nerve, bilateral lower limbs; M47.812 Spondylosis without myelopathy or radiculopathy, cervical region; M54.16 Radiculopathy, lumbar region; Z96.651 Presence of right artificial knee joint; J45.909 Unspecified asthma, uncomplicated; I10 Essential (primary) hypertension; E66.9 Obesity, unspecified; Z88.0 Allergy status to penicillin; Z68.32 Body mass index [BMI] 32.0-32.9, adult
CPT/HCPCS: 20610; J2001 ×2; J2250; J2704; J7325; Q9967

== ENCOUNTER → 2020-02-08 | Day surgery (SDC) | payer MEDICARE, OTHER ==
[2020-02-05 11:30] LABS: BASOPHILS % 0.5 % (0.0-1.0); EOSINOPHILS # (AUTO) 0.1 (0.0-0.4); EOSINOPHILS % 1.9 % (0.0-6.0); HEMATOCRIT 39.1 % (34.2-44.1); HEMOGLOBIN 11.8 g/dL (12.0-16.0); LYMPHOCYTES # (AUTO) 1.8 (1.0-3.2); LYMPHOCYTES % 30.6 % (18.0-39.1); MEAN CORPUSCULAR HEMOGLOBIN 27.1 pg (28-32); MEAN CORPUSCULAR HGB CONC 30.2 g/dL (31-35); MEAN CORPUSCULAR VOLUME 89.7 fL (81-99); MONOCYTES # (AUTO) 0.7 (0.2-0.8); MONOCYTES % 11.2 % (4.4-11.3); NEUTROPHILS # (AUTO) 3.2 (2.1-6.9); NEUTROPHILS % 55.5 % (38.7-80.0); PLATELET COUNT 152 x10e3/uL (140-360); RED BLOOD COUNT 4.36 x10e6/uL (3.6-5.1); RED CELL DISTRIBUTION WIDTH 13.3 % (11.7-14.4)
[~2020-02-08] MED LIST changes: +ALPRAZOLAM0.25 MG PO; +CETIRIZINE HCL10 MG PO; +CITALOPRAM HBR20 MG PO; -HYALURONIDASE 16 MG/2 ML SYR IU ONE; +IRON 100-VITAM1 EACH PO; -LIDOCAINE HCL 2% LOCAL INJ 5 ML SDV VIAL INJ ONE; +LISINOPRIL10 MG PO; +METOPROLOL SUCC25 MG PO; +NORCO 5-325 TA1 EACH PO; -PROPOFOL IV EMULSION 10 MG/ML 20 ML VIAL IV ONE; +PROPOFOL IV EMULSION 10 MG/ML 20 ML VIAL ONE; +XARELTO10 MG PO
--- OUTSIDE RECORDS SUMMARY | 2020-02-08 06:01 | XMS REPORT | Continuity of Care Document ---
Author Author [facility] Address Unknown Phone Unavailable Care Team Providers Care Television News Anchor Name Role Phone [employer] Unavailable Un available Problems Problem Status Onset Date Classification Date Reported Comments Source Osteoarthritis Active 10/23/2013 [facility] Asthma Active 10/23/2013 [facility] Hypertension Active 10/23/2013 [facility] Vitamin D Deficiency Active 10/23/2013 [facility] Medications Medication Details Route Status Patient Instructions Ordering Provider Order Date Source Multi-Vitamins TABS (Active) Active [facility] Calcium TABS (Active) Active [facility] Lisinopril 20 MG Oral Tablet (Active) Active [facility] Allergies, Adverse Reactions, Alerts Substance Category Reaction Severity Reaction type Status Date Reported Comments Source Penicillins drug allergy drug allergy Active [facility] Immunizations Immunization Date Given Site Status Last Updated Comments Source Influenza completed [facility] Results No Data Provided for This Section Pathology Reports No Data Provided for This Section Diagnostic Reports No Data Provided for This Section Consultation Notes No Data Provided for This Section Discharge Summaries No Data Provided for This Section History and Physicals No Data Provided for This Section Vital Signs No Data Provided for This Section Encounters Location Location Details Encounter Type Encounter Number Reason For Visit Attending Provider ADM Date DC Date Status Source AUDIT [id number] 08/11/2013 08/11/2013 [facility] AUDIT [id number] 08/15/2013 08/15/2013 [facility] POS, Provi tricia: CHRIS SILVERMAN, Status: Pen, Time: 3:00 PM [id number] 08/31/20 13 08/15/2013 [facility] AUDIT [id number] 10/17/2013 10/17/2013 [facility] AUDIT [id number] 10/23/2013 10/23/2013 [facility] ECL, Provi tricia: OWEN CRUZ, Status: Pen, Time: 1:30 PM [id number] 11/03/2013 10/23/2013 [facility] POS, Provi tricia: CHRIS SILVERMAN, Status: Pen, Time: 3:00 PM [id number] 11/07/19 14 10/23/2013 [facility] Procedures No Data Provided for This Section Assessment and Plan No Data Provided for This Section Plan of Care Plan of Care Date Source [QLH] VITAMIN B12 08/11/2013 Routine 10/23/2013 [facility] [QLH] VITAMIN B12 08/11/2013 RoutineFoll ow-up visit in 6 months 10/17/2013 Routine 10/17/2013 [facility] [QLH] VITAMIN B12 08/11/2013 Routine[QLH ] CBC (INCLUDES DIFF/PLT) 08/11/2013 Routine[QLH] CMP W/EGFR 08/11/2013 Routine[QLH] TSH, 3RD GENERATION W/REFLEX TO FT4 08/11/2013 Routine[QLH] VITAMIN D, 1,25 DIHYDROXY LC/MS/MS 08/11/2013 Routine 08/15/2013 [facility] [L] Lipid Panel w/ Chol/HDL Ratio 2012 Routine[QLH] VITAMIN B12 08/11/2013 Routine[QLH] CBC (INCLUDES DIFF/PLT) 08/11/2013 Routine[QLH] CMP W/EGFR 08/11/2013 Routine[QLH] TSH, 3RD GENERATION W/REFLEX TO FT4 08/11/2013 Routine[QLH] VITAMIN D, 1,25 DIHYDROXY LC/MS/MS 08/11/2013 RoutineFollow-up visit in 3 months 08/11/2013 Routine 08/11/2013 [facility] Social History Social History Date Source Never A Smoker (Active) Keily al History - Currently (Active) 10/23/2013 [facility] Family History Value Date S ource Paternal history of Coronary Artery Dise ase (V17.49); (Active) Paternal history of Sarcoma Of The Skin (Active) Maternal history of Cervical Cancer (Active) Maternal history of Hypertension (V17.49); (Active) Maternal history of Stroke Syndrome (V17.1); (Active) Fraternal history of Coronary Artery Disease (V17.49); (Active) Sororal history of Diabetes Mellitus (V18.0); (Active) Maternal grandfather's history of Stroke Syndrome (V17.1); (Active) 10/23/2013 [facility] Paternal history of Coronary Artery Dise ase (V17.49); (Active) Paternal history of Sarcoma Of The Skin (Active) Maternal history of Cervical Cancer (Active) Maternal history of Hypertension (V17.49); (Active) Maternal history of Stroke Syndrome (V17.1); (Active) Fraternal history of Coronary Artery Disease (V17.49); (Active) Sororal history of Diabetes Mellitus (V18.0); (Active) Maternal grandfather's history of Stroke Syndrome (V17.1); (Active) 10/17/2013 [facility] Paternal history of Coronary Artery Dise ase (V17.49); (Active) Paternal history of Sarcoma Of The Skin (Active) Maternal history of Cervical Cancer (Active) Maternal history of Hypertension (V17.49); (Active) Maternal history of Stroke Syndrome (V17.1); (Active) Fraternal history of Coronary Artery Disease (V17.49); (Active) Sororal history of Diabetes Mellitus (V18.0); (Active) Maternal grandfather's history of Stroke Syndrome (V17.1); (Active) 08/15/2013 [facility] Paternal history of Coronary Artery Dise ase (V17.49); (Active) Paternal history of Sarcoma Of The Skin (Active) Maternal history of Cervical Cancer (Active) Maternal history of Hypertension (V17.49); (Active) Maternal history of Stroke Syndrome (V17.1); (Active) Fraternal history of Coronary Artery Disease (V17.49); (Active) Sororal history of Diabetes Mellitus (V18.0); (Active) Maternal grandfather's history of Stroke Syndrome (V17.1); (Active) 08/11/2013 [facility] Advance Directives Order Name Results Value Date Source Advance Directives Advance Dir ectives No Advance Directives available. 10/23/2013 [facility] Advance Directives Advance Dir ectives No Advance Directives available. 10/17/2013 [facility] Advance Directives Advance Dir ectives No Advance Directives available. 08/15/2013 [facility] Advance Directives Advance Dir ectives No Advance Directives available. 08/11/2013 [facility] Functional Status No Data Provided for This Section
--- OUTSIDE RECORDS SUMMARY | 2020-02-08 06:01 | XMS REPORT ---
Author Author [facility] Organization [facility] Address [address] [place] [address] Phone Unavailable Care Team Providers Care Nursing Clinical Director Name Role Phone Unavailable Unavailable Problems This patient has no known problems. Allergies, Adverse Reactions, Alerts This patient has no known allergies or adverse reactions. Medications This patient has no known medications. Procedures This patient has no known procedures. Encounters Start Date/Time End Date/Time Encounter Type Admission Type Attendi [facility] Care Department Encounter ID Source 2019-06-29 05:49:00 2019-06-29 05:49:00 Outpatient [facility] [id number] [facility] 2019-03-06 12:53:00 2019-03-06 07:31:00 Inpatient U [id number] 2019-03-02 07:18:00 2019-03-02 07:18:00 Outpatient [id number] 2019-03-01 08:24:00 2019-03-01 08:24:00 Outpatient [id number] 2013-10-23 09:08:07 2013-10-23 09:08:06 Outpatient [facility] [id number] 2013-10-17 09:34:42 2013-10-17 09:34:41 [facility]patient [facility] [id number] 2013-08-15 10:08:41 2013-08-15 10:08:41 Outpatient [facility] [id number] 2013-08-11 14:18:54 2013-08-11 14:18:53 Outpatient [facility] [id number] Results This patient has no known results.
--- OUTSIDE RECORDS SUMMARY | 2020-02-08 06:01 | XMS REPORT ---
Author Author [facility]NTHIA CRUZ [facility] Organization Unknown Address Unknown Phone Care Team Providers Care Salon Coordinator Name Role Phone NANCYOWEN PP Unavailable Reason for Referral No Reason for Referral was given. History of Present Illness No HPI available. Problems * Normal Routine History And Physical Senior Citizen (65-80) (V70.0); ( Active) * Osteoarthritis (715.90); (Active) * Asthma Clinical Progress: Improving; (493.90); (Active) * Vitamin D Deficiency (268.9); (Active) * Hypertension Clinical Progress: Improving; (401.9); (Active) Medication * Multi-Vitamins TABS (Active) * Calcium TABS (Active) * Lisinopril 20 MG Oral Tablet; TAKE 1 TABLET DAILY (Active) Allergies and Adverse Reactions * Penicillins (Active) Past Medical History * No Significant Medical History Procedures Procedure Procedure Date Date Completed Status Tonsillectomy - - Resolved Section - - Resolved Gastric Surgery For Morbid Obesity Gastroplasty - - Resolved Gallbladder Surgery - - Resolved Partial Colectomy - - Resolved Reported Hx Of Knee Replacement - Right - - Resolved Femur Repair - - Resolved Lumbar Injection - - Resolved Immunization * Influenza Family History * Paternal history of Coronary Artery Disease (V17.49); (Active) * Paternal history of Sarcoma Of The Skin (Active) * Maternal history of Cervical Cancer (Active) * Maternal history of Hypertension (V17.49); (Active) * Maternal history of Stroke Syndrome (V17.1); (Active) * Fraternal history of Coronary Artery Disease (V17.49); (Active) * Sororal history of Diabetes Mellitus (V18.0); (Active) * Maternal grandfather's history of Stroke Syndrome (V17.1); (Active) Social History * Never A Smoker (Active) * Marital History - Currently (Active) Treatment Plan * [[facility]] VITAMIN B12 08/11/2013 Routine * Follow-up visit in 6 months 10/17/2013 Routine Advance Directives * No Advance Directives available. Encounters * AUDIT 10/17/2013 * ECL, Provider: OWEN CRUZ, Status: [place], Time: 1:30 PM 11/03/2013 * POS, Provider: CHRIS SILVERMAN, Status: Freedom, Time: 3:00 PM 11/07/2013
--- OUTSIDE RECORDS SUMMARY | 2020-02-08 06:01 | XMS REPORT ---
Author Author [facility]IA [facility] Unknown Address Unknown Phone Care Team Providers Care Photographic Plate Maker Name Role Phone Scout Christina PP Unavailable Reason for Referral No Reason [...] History - Currently (Active) Treatment Plan * [[facility]] VITAMIN B12 08/11/2013 Routine Advance Directives * No Advance Directives available. Encounters * AUDIT 10/23/2013 * ECL, Provider: OWEN CRUZ, Status: [place], Time: 1:30 PM 11/03/2013 * POS, Provider: CHRIS SILVERMAN, Status: [place], Time: 3:00 PM 11/07/2013
--- OUTSIDE RECORDS SUMMARY | 2020-02-08 06:01 | XMS REPORT ---
Author Author CYNTHIA [facility]field [facility] Organization Unknown Address Unknown Phone Care Team Providers Care Die Polisher Name Role Phone Scout Christina PP Unavailable Reason for Referral No Reason for Referral was given. History of Present Illness No HPI available. Problems * Normal Routine History And Physical Senior Citizen (65-80) (V70.0); ( Active) * Osteoarthritis (715.90); (Active) * Asthma Clinical Progress: Improving; (493.90); (Active) * Hypertension Clinical Progress: Improving; (401.9); (Active) * Vitamin D Deficiency (268.9); (Active) Medication * Multi-Vitamins TABS (Active) * Calcium TABS (Active) Allergies and Adverse Reactions * Penicillins [...] History - Currently (Active) Treatment Plan * [L] Lipid Panel w/ Chol/HDL Ratio 08/11/2013 Routine * [QLH] VITAMIN B12 08/11/2013 Routine * [QLH] CBC (INCLUDES DIFF/PLT) 08/11/2013 Routine * [QLH] CMP W/EGFR 08/11/2013 Routine * [QLH] TSH, 3RD GENERATION W/REFLEX TO FT4 08/11/2013 Routine * [QLH] VITAMIN D, 1,25 DIHYDROXY LC/MS/MS 08/11/2013 Routine * Follow-up visit in 3 months 08/11/2013 Routine Advance Directives * No Advance Directives available. Encounters * AUDIT 08/11/2013 * POS, Provider: CHRIS SILVERMAN, Status: [place], Time: 3:00 PM 08/31/2013 * ECL, Provider: OWEN CRUZ, Status: [place], Time: 1:30 PM 11/03/2013
--- OUTSIDE RECORDS SUMMARY | 2020-02-08 06:01 | XMS REPORT ---
Author Author CYNTHIA CRUZ [facility] Organization Unknown Address Unknown Phone Care Team Providers Care Communications Specialist Name Role Phone YUDELKACHELSEAJOSE ROWEN PP Unavailable Reason for Referral No Reason [...] History - Currently (Active) Treatment Plan * [QLH] VITAMIN B12 08/11/2013 Routine * [QLH] CBC (INCLUDES DIFF/PLT) 08/11/2013 Routine * [QLH] CMP W/EGFR 08/11/2013 Routine * [QLH] TSH, 3RD GENERATION W/REFLEX TO FT4 08/11/2013 Routine * [QLH] VITAMIN D, 1,25 DIHYDROXY LC/MS/MS 08/11/2013 Routine Advance Directives * No Advance Directives available. Encounters * AUDIT 08/15/2013 * POS, Provider: CHRIS SILVERMAN, Status: [place], Time: 3:00 PM 08/31/2013 * ECL, Provider: OWEN CRUZ, Status: [place], Time: 1:30 PM 11/03/2013
[2020-02-08 08:06] VITALS: BP 112/60
== END | disposition home or self-care (01) ==
LOC: OR 05:56
PROVIDERS: ATTEND Physical Medicine & Rehabilitation Pain Medicine
DX: M17.12 Unilateral primary osteoarthritis, left knee (principal); M47.892 Other spondylosis, cervical region; M54.16 Radiculopathy, lumbar region; M70.62 Trochanteric bursitis, left hip; M70.61 Trochanteric bursitis, right hip; R20.0 Anesthesia of skin; I10 Essential (primary) hypertension; I48.91 Unspecified atrial fibrillation; K21.9 Gastro-esophageal reflux disease without esophagitis; F32.9 Major depressive disorder, single episode, unspecified; F41.9 Anxiety disorder, unspecified; Z88.0 Allergy status to penicillin; Z01.810 Encounter for preprocedural cardiovascular examination; Z01.812 Encounter for preprocedural laboratory examination; Z79.02 Long term (current) use of antithrombotics/antiplatelets; Z68.34 Body mass index [BMI] 34.0-34.9, adult; Z96.651 Presence of right artificial knee joint
CPT/HCPCS: 20610; 36415; 77002; 85025; 87635; 93005; J2001; J2250; J2704; J3010; J7325; Q9967; 76000

== ENCOUNTER → 2020-02-22 | Day surgery (SDC) | payer MEDICARE, OTHER ==
[~2020-02-22] MED LIST changes: -FENTANYL CITRATE/PF 100MCG/2 ML INJ ONE
[2020-02-22 07:00] VITALS: BP 105/61
== END | disposition home or self-care (01) ==
LOC: OR 05:17
PROVIDERS: ATTEND Physical Medicine & Rehabilitation Pain Medicine
DX: M17.12 Unilateral primary osteoarthritis, left knee (principal); M47.892 Other spondylosis, cervical region; M54.16 Radiculopathy, lumbar region; M70.62 Trochanteric bursitis, left hip; M70.61 Trochanteric bursitis, right hip; M46.1 Sacroiliitis, not elsewhere classified; J45.909 Unspecified asthma, uncomplicated; I10 Essential (primary) hypertension; I48.91 Unspecified atrial fibrillation; K21.9 Gastro-esophageal reflux disease without esophagitis; K58.9 Irritable bowel syndrome, unspecified; R20.0 Anesthesia of skin; F32.9 Major depressive disorder, single episode, unspecified; F41.9 Anxiety disorder, unspecified; Z88.0 Allergy status to penicillin; Z01.812 Encounter for preprocedural laboratory examination; Z11.59 Encounter for screening for other viral diseases; Z79.02 Long term (current) use of antithrombotics/antiplatelets; Z68.34 Body mass index [BMI] 34.0-34.9, adult; Z96.651 Presence of right artificial knee joint
CPT/HCPCS: 20610; 87635; J2001; J2250; J2704; J7325; Q9967; 76000

== ENCOUNTER → 2020-03-07 | Day surgery (SDC) | payer MEDICARE, OTHER ==
[~2020-03-07] MED LIST changes: -HYALURONIDASE 16 MG/2 ML SYR ONE; +LIDOCAINE HCL 2% LOCAL INJ 5 ML SDV VIAL INJ ONE; -MIDAZOLAM HCL 2 MG/2 ML VIAL ONE; +TRIAMCINOLONE ACET 40 MG/ML VIAL ONE
[2020-03-07 07:20] VITALS: BP 132/71
== END | disposition home or self-care (01) ==
LOC: OR 05:25
PROVIDERS: ATTEND Physical Medicine & Rehabilitation Pain Medicine
DX: M17.12 Unilateral primary osteoarthritis, left knee (principal); M47.892 Other spondylosis, cervical region; M70.62 Trochanteric bursitis, left hip; M70.61 Trochanteric bursitis, right hip; M46.1 Sacroiliitis, not elsewhere classified; G57.03 Lesion of sciatic nerve, bilateral lower limbs; Z96.651 Presence of right artificial knee joint; J45.909 Unspecified asthma, uncomplicated; I10 Essential (primary) hypertension; K21.9 Gastro-esophageal reflux disease without esophagitis; K58.9 Irritable bowel syndrome, unspecified; F41.9 Anxiety disorder, unspecified; Z88.0 Allergy status to penicillin; Z01.812 Encounter for preprocedural laboratory examination; Z11.59 Encounter for screening for other viral diseases; Z79.02 Long term (current) use of antithrombotics/antiplatelets
CPT/HCPCS: 20610; 87635; J2001 ×2; J2704; J3301; Q9967; 76000

== ENCOUNTER → 2020-05-02 | Day surgery (SDC) | payer MEDICARE, OTHER ==
[2020-04-26 14:24] LABS: BASOPHILS % 0.5 % (0.0-1.0); EOSINOPHILS # (AUTO) 0.1 (0.0-0.4); HEMATOCRIT 38.5 % (34.2-44.1); HEMOGLOBIN 11.6 g/dL (12.0-16.0); LYMPHOCYTES # (AUTO) 2.1 (1.0-3.2); LYMPHOCYTES % 38.8 % (18.0-39.1); MEAN CORPUSCULAR HEMOGLOBIN 26.5 pg (28-32); MEAN CORPUSCULAR HGB CONC 30.1 g/dL (31-35); MEAN CORPUSCULAR VOLUME 88.1 fL (81-99); MONOCYTES # (AUTO) 0.7 (0.2-0.8); MONOCYTES % 12.2 % (4.4-11.3); NEUTROPHILS # (AUTO) 2.5 (2.1-6.9); NEUTROPHILS % 46.1 % (38.7-80.0); PLATELET COUNT 155 x10e3/uL (140-360); RED BLOOD COUNT 4.37 x10e6/uL (3.6-5.1); RED CELL DISTRIBUTION WIDTH 13.8 % (11.7-14.4)
[~2020-05-02] MED LIST changes: +HYALURONIDASE 16 MG/2 ML SYR ONE; -LIDOCAINE HCL 2% LOCAL INJ 5 ML SDV VIAL INJ ONE; +MIDAZOLAM HCL 2 MG/2 ML VIAL ONE; +PANTOPRAZOLE SO40 MG PO; -PROPOFOL IV EMULSION 10 MG/ML 20 ML VIAL ONE; -TRIAMCINOLONE ACET 40 MG/ML VIAL ONE
[2020-05-02 07:19] VITALS: BP 107/61
== END | disposition home or self-care (01) ==
LOC: OR 05:20
PROVIDERS: ATTEND Physical Medicine & Rehabilitation Pain Medicine
DX: M17.12 Unilateral primary osteoarthritis, left knee (principal); M47.892 Other spondylosis, cervical region; M47.816 Spondylosis without myelopathy or radiculopathy, lumbar region; M70.62 Trochanteric bursitis, left hip; M70.61 Trochanteric bursitis, right hip; M46.1 Sacroiliitis, not elsewhere classified; M54.16 Radiculopathy, lumbar region; R20.0 Anesthesia of skin; I10 Essential (primary) hypertension; I48.91 Unspecified atrial fibrillation; K21.9 Gastro-esophageal reflux disease without esophagitis; E03.9 Hypothyroidism, unspecified; F41.9 Anxiety disorder, unspecified; F32.9 Major depressive disorder, single episode, unspecified; Z88.0 Allergy status to penicillin; Z01.810 Encounter for preprocedural cardiovascular examination; Z01.812 Encounter for preprocedural laboratory examination; Z11.59 Encounter for screening for other viral diseases; Z79.02 Long term (current) use of antithrombotics/antiplatelets; Z96.651 Presence of right artificial knee joint
CPT/HCPCS: 20610; 36415; 77002; 85025; 93005; J2001; J2250; J7325; Q9967; U0002; 76000

== ENCOUNTER → 2022-05-21 | Day surgery (SDC) | payer MEDICARE, OTHER ==
[2022-05-19 11:55] LABS: BASOPHILS % 0.5 % (0.0-1.0); EOSINOPHILS # (AUTO) 0.2 (0.0-0.4); EOSINOPHILS % 2.6 % (0.0-6.0); HEMATOCRIT 35.8 % (34.2-44.1); HEMOGLOBIN 10.5 g/dL (12.0-16.0); LYMPHOCYTES # (AUTO) 2.3 (1.0-3.2); LYMPHOCYTES % 35.7 % (18.0-39.1); MEAN CORPUSCULAR HEMOGLOBIN 24.1 pg (28-32); MEAN CORPUSCULAR HGB CONC 29.3 g/dL (31-35); MEAN CORPUSCULAR VOLUME 82.1 fL (81-99); MONOCYTES # (AUTO) 0.8 (0.2-0.8); MONOCYTES % 12.8 % (4.4-11.3); NEUTROPHILS # (AUTO) 3.2 (2.1-6.9); NEUTROPHILS % 48.2 % (38.7-80.0); PLATELET COUNT 171 x10e3/uL (140-360); RED BLOOD COUNT 4.36 x10e6/uL (3.6-5.1)
[~2022-05-21] MED LIST changes: +BUPIVACAINE 0.25% 30ML SDV ONE; +CALCIUM CARBON500 MG PO; +CRESTOR10 MG PO; +CYCLOBENZAPRINE10 MG PO; +CYMBALTA20 MG PO; +FENTANYL CITRATE/PF 100MCG/2 ML INJ ONE; +FUROSEMIDE40 MG PO; -HYALURONIDASE 16 MG/2 ML SYR ONE; -LIDOCAINE HCL 1% 30ML-PF VIAL ONE; +LIDOCAINE HCL 2% LOCAL INJ 5 ML SDV VIAL INJ ONE; +PREDNISOLO15 MG/5 ML OU; +RESTASIS1 EACH OU; +TRIAMCINOLONE ACET 40 MG/ML VIAL ONE
[2022-05-21 07:55] VITALS: BP 124/56
== END | disposition home or self-care (01) ==
LOC: OR 06:56
PROVIDERS: ATTEND Physical Medicine & Rehabilitation Pain Medicine
DX: M46.1 Sacroiliitis, not elsewhere classified (principal); M54.16 Radiculopathy, lumbar region; G89.4 Chronic pain syndrome; M47.892 Other spondylosis, cervical region; M54.12 Radiculopathy, cervical region; M81.0 Age-related osteoporosis without current pathological fracture; M54.81 Occipital neuralgia; M17.12 Unilateral primary osteoarthritis, left knee; M70.62 Trochanteric bursitis, left hip; M70.61 Trochanteric bursitis, right hip; I48.91 Unspecified atrial fibrillation; I10 Essential (primary) hypertension; J45.909 Unspecified asthma, uncomplicated; K21.9 Gastro-esophageal reflux disease without esophagitis; F41.9 Anxiety disorder, unspecified; Z88.0 Allergy status to penicillin; Z01.810 Encounter for preprocedural cardiovascular examination; Z01.812 Encounter for preprocedural laboratory examination; Z20.822 Contact with and (suspected) exposure to COVID-19; Z79.02 Long term (current) use of antithrombotics/antiplatelets; Z79.899 Other long term (current) drug therapy
CPT/HCPCS: 0223U; 36415; 85025; 93005; G0260; J2001; J2250; J3010; J3301; Q9967; 77003

== ENCOUNTER → 2025-04-25 | Day surgery (SDC) | payer MEDICARE, OTHER ==
[2025-04-20 11:40] LABS: NEUTROPHILS % 49.0 % (38.7-80.0); RED CELL DISTRIBUTION WIDTH 16.6 % (11.7-14.4)
[2025-04-20 11:41] LABS: BASOPHILS % 0.6 % (0.0-1.0); EOSINOPHILS % 4.7 % (0.0-6.0); LYMPHOCYTES % 30.7 % (18.0-39.1); MONOCYTES % 14.7 % (4.4-11.3)
[~2025-04-25] MED LIST changes: +BINOSTO70 MG PO; -BUPIVACAINE 0.25% 30ML SDV ONE; +CULTURELLE1 EACH PO; +ESTRACE42.5 GM VG; -FENTANYL CITRATE/PF 100MCG/2 ML INJ ONE; +GEMTESA75 MG PO; -IOPAMIDOL 200 MG/ML 20 ML VIAL IT ONE; +LIDOCAINE 5% TOP; -MIDAZOLAM HCL 2 MG/2 ML VIAL ONE; +PRAVASTATIN SOD20 MG PO; +PRESERVISION A1 EAC3 PO; +PROPOFOL IV EMULSION 10 MG/ML 20 ML VIAL ONE; -TRIAMCINOLONE ACET 40 MG/ML VIAL ONE; +TYLENOL325 MG PO
[2025-04-25 10:44] VITALS: TEMP 97.5
[2025-04-25 11:15] VITALS: BP 138/65; PULSE 78; RESP 16; O2SAT 98
[2025-04-25] MEDS: LACTATED RINGER'S 1,000 ML ONE (11:48)
== END | disposition home or self-care (01) ==
LOC: OR 08:51
PROVIDERS: ATTEND Physical Medicine & Rehabilitation Pain Medicine
DX: M54.16 Radiculopathy, lumbar region (principal); I48.91 Unspecified atrial fibrillation; I11.0 Hypertensive heart disease with heart failure; I50.32 Chronic diastolic (congestive) heart failure; Z01.810 Encounter for preprocedural cardiovascular examination; Z01.812 Encounter for preprocedural laboratory examination; M81.0 Age-related osteoporosis without current pathological fracture; M48.061 Spinal stenosis, lumbar region without neurogenic claudication; M47.896 Other spondylosis, lumbar region
CPT/HCPCS: 36415; 64483; 64484; 77003; 85025; 93005; J2003; J2704; J7121; 77002